=== PATIENT | male | born 1955 | race Caucasian/White ===

== ENCOUNTER 2020-02-09 13:22 | Inpatient (IN) ==
[2020-02-09] MEDS ORDERED: DEXAMETHASONE SOD INJ 10 MG/ML VIAL IV ONE (13:46)
--- NOTE | 2020-02-09 14:14 | Emergency Department Note ---
Impression & Plan Pneumonia due to 2019 novel coronavirus, Hypoxia, Respiratory failure ED Provider Note NAME: KATHRINE KABA AGE: 64 SEX: M : 1955 ARRIVES VIA: Walk-In INFORMANT: Patient ED PROVIDER(S): Laureano Oates DO CHIEF COMPLAINT: Shortness of breath HPI: The patient is a 64-year-old male who presented to the emergency department because of severe shortness of breath. The patient was seen in our facility earlier this week on Tuesday and was diagnosed with COVID-19. He was sent home because at that time he was stable and did not have an oxygen requirement. He followed up with his [facility] doctor. He was started on prednisone Tessalon Perles and doxycycline. He was also taking inhaler. The patient states he continues to to have worsening symptoms including shortness of breath and dry cough. The patient presents back to the emergency department because of severe difficulty breathing. He denies having any nausea or vomiting. The patient has not had any leg swelling. He denies having any orthopnea but does have very severe shortness of breath with any exertion. The patient presented to triage and was found have a very low oxygen saturation. He was moved directly to room A4. ROS: See above HPI for pertinent positives & negatives. A total of 10 systems reviewed and were otherwise negative. PAST MEDICAL HISTORY: See Below PAST SURGICAL HISTORY: See Below FAMILY HISTORY: See Below SOCIAL HISTORY: See Below HOME MEDICATIONS: See Below ALLERGIES: See Below VITALS: See Below PHYSICAL EXAMINATION: GENERAL: Q patient is awake and alert. The patient is very anxious appearing. EYES: The conjunctivae are clear. The pupils are round and reactive. EARS, NOSE, MOUTH AND THROAT: The nose is without any evidence of any deformity. NECK: The neck is nontender and supple. RESPIRATORY: Shallow respirations were noted. There were rales noted in both upper lung mccabe. Significant tachypnea and conversational dyspnea was appreciated. CARDIOVASCULAR: Tachycardic rate with regular rhythm was noted. No definite murmur could be heard. GASTROINTESTINAL: The abdomen is soft. Abdomen is nontender. MUSCULOSKELETAL/EXTREMITIES: There is no evidence of gross deformity full range of motion is noted in the hips and shoulders. SKIN: There is no obvious evidence of any rash. There are no petechiae, pallor or cyanosis noted. NEUROLOGIC: Patient is awake alert and oriented x3. MEDICAL DECISION MAKING: The patient is a 64-year-old male who presented to the emergency department with failed outpatient treatment for COVID-19 pneumonia. The patient was seen twice for this acute pulmonary infection. He returns emergency department today with significant hypoxia. He was placed on supplemental oxygen. At rest he does seem to be much improved and his oxygen saturation is improved as well. The patient was treated with Decadron in the emergency department. I discussed the patient's laboratory and radiographic studies with him. He was not aggressively hydrated given the nature of his pulmonary infection. I discussed the patient's condition with the on-call [facility] hospitalist. They have agreed to evaluate the patient in the emergency department for further management and disposition. Triage Nursing notes reviewed. Prior medical records reviewed Vital Signs: reviewed and remarkable for hypoxia and tachypnea. Differential diagnosis: Reactive airway disease, pneumonia, pneumothorax, COPD, CHF, infections, cardiac ischemia, pulmonary embolism, musculoskeletal, gastrointestinal, as well as other pathologies. ER treatment provided: See below Diagnostics interpreted by me: ECG: EKG was obtained in the emergency department. My interpretation is sinus tachycardia at 103 bpm. PVCs were noted. Left bundle branch block pattern was noted. This was compared to a tracing from February [id number]. No significant changes were noted. Cardiac Monitoring: An order was placed for continuous cardiac monitoring. The monitor shows a rate of 95 bpm with sinus rhythm. Laboratory studies: As stated above and show below. Imaging studies: See below Consultation(s): [id number]: I discussed this with Dr. Haynes who is on-call for the [facility] group. He will evaluate the patient in the emergency department. ED COURSE: Procedures: none PDMP:reviewed and no issues Critical Care: I have personally spent greater than 55 minutes of critical care time in the direct management of this patient. This includes bedside care, interpretation of diagnostic studies, and testing, discussion with consultants, patient, and family members, and other required patient management activities. This 55 minutes is in excess of all separately billable procedures. Past Med/Surg History Medical History COVID-19 Hypercholesterolemia Hypertension Social History Smoking Status: Never smoker Preferred Language: Maori Feels Safe at Home: Yes Allergies Allergies Allergy/AdvReac Type Severity Reaction Status Date / Time No Known Allergies Allergy Mild Unverified 02/04/20 12:30 Home Meds Home Medications Medication Instructions Recorded Confirmed aspirin 81 mg PO QAM 02/04/20 02/04/20 atorvastatin 10 mg PO 2XWK 02/04/20 02/04/20 metoprolol tartrate 12.5 mg PO BID 02/04/20 02/04/20 warfarin 2.5 mg PO 5XWK 02/04/20 02/04/20 warfarin 5 mg PO 2XWK 02/04/20 02/04/20 Previous Rx's Medication Instructions Recorded benzonatate [Tessalon Perles] 100 mg PO Q6H PRN #20 cap 02/04/20 Results & Data (ED) Vital Signs Vital Signs - 24 hr 02/09/20 13:31 02/09/20 13:56 02/09/20 14:00 Pulse Rate 105 H 103 H 105 H Pulse Rate from SpO2 Sensor 92 H 90 Respiratory Rate 30 H 17 6 L Respiratory Effort / Characteristics Short of Breath SOB on Exertion Respiratory Pattern Tachypnea Blood Pressure 144/77 H 126/104 H 135/97 Blood Pressure Mean 99 110 110 Blood Pressure Position Sitting Pulse Oximetry 79 L 86 L 87 L Oxygen Delivery Method Room Air Nasal Cannula Oxymask Oxygen Flow Rate 6 6 Sepsis Recent Fever Within 48 Hours No Sepsis New/Unexplained Change in Mental Status No Sepsis Action Taken by Nursing No Action Required Oxygen Flow Rate - Titration Pulse Oximetry Post Tiitration 02/09/20 14:16 02/09/20 14:18 02/09/20 14:20 Pulse Rate 90 Pulse Rate from SpO2 Sensor 92 H Respiratory Rate 21 Respiratory Effort / Characteristics Accessory Muscle Use Short of Breath SOB on Exertion Respiratory Pattern Blood Pressure 144/84 H Blood Pressure Mean 102 Blood Pressure Position Pulse Oximetry 91 91 91 Oxygen Delivery Method Oxymask Oxymask Oxymask Oxygen Flow Rate 12 12 12 Sepsis Recent Fever Within 48 Hours Sepsis New/Unexplained Change in Mental Status Sepsis Action Taken by Nursing Oxygen Flow Rate - Titration 12 Pulse Oximetry Post Tiitration 91 02/09/20 14:30 02/09/20 14:39 02/09/20 14:45 Pulse Rate 105 H 99 H Pulse Rate from SpO2 Sensor 80 79 Respiratory Rate 22 6 L Respiratory Effort / Characteristics Spontaneous Labored Respiratory Pattern Rapid/Shallow Tachypnea Blood Pressure 144/72 H 128/87 Blood Pressure Mean 77 100 Blood Pressure Position Pulse Oximetry 92 90 Oxygen Delivery Method Oxygen Flow Rate 15 15 Sepsis Recent Fever Within 48 Hours Sepsis New/Unexplained Change in Mental Status Sepsis Action Taken by Nursing Oxygen Flow Rate - Titration Pulse Oximetry Post Tiitration 02/09/20 15:00 02/09/20 15:16 02/09/20 15:30 Pulse Rate 94 H 98 H 94 H Pulse Rate from SpO2 Sensor 88 90 88 Respiratory Rate 12 19 36 H Respiratory Effort / Characteristics Spontaneous Short of Breath Spontaneous Short of Breath Respiratory Pattern Blood Pressure 144/94 H 144/95 H 146/93 H Blood Pressure Mean 103 117 99 Blood Pressure Position Pulse Oximetry 91 91 92 Oxygen Delivery Method Oxymask Oxymask Oxymask Oxygen Flow Rate 15 15 15 Sepsis Recent Fever Within 48 Hours Sepsis New/Unexplained Change in Mental Status Sepsis Action Taken by Nursing Oxygen Flow Rate - Titration Pulse Oximetry Post Tiitration 02/09/20 15:45 02/09/20 16:00 Pulse Rate 94 H 90 Pulse Rate from SpO2 Sensor 76 69 Respiratory Rate 52 H 31 H Respiratory Effort / Characteristics Spontaneous Short of Breath Respiratory Pattern Blood Pressure 133/85 136/103 H Blood Pressure Mean 90 110 Blood Pressure Position Pulse Oximetry 91 90 Oxygen Delivery Method Oxymask Oxymask Oxygen Flow Rate 15 15 Sepsis Recent Fever Within 48 Hours Sepsis New/Unexplained Change in Mental Status Sepsis Action Taken by Nursing Oxygen Flow Rate - Titration Pulse Oximetry Post Tiitration Home Medications Current Medication List: was personally reviewed by me Laboratory Data Attestation: I reviewed the patient's lab results. Result diagrams: 02/09/20 14:16 02/09/20 14:16 Lab Results 02/09/20 02/09/20 02/09/20 Range/Units 14:16 14:16 14:16 WBC 12.45 H (4.8-10.8) K/uL RBC 5.04 (4.7-6.1) M/uL Hgb 15.7 (14.0-18.0) g/dL Hct 45.2 (42-52) % MCV 89.7 (80-100) fL MCH 31.2 (25-34) pg MCHC 34.7 (32-36) g/dL RDW Std Deviation 42.3 (36.4-46.3) fL RDW Coeff of Adam 12.9 (11.5-14.5) % Plt Count 315 (130-400) K/uL MPV 11.5 H (7.4-10.4) fL Immature Gran % (Auto) 0.6 % Neut % (Auto) 92.0 % Lymph % (Auto) 2.4 % Dale % (Auto) 4.8 % Eos % (Auto) 0.0 % Baso % (Auto) 0.2 % Neut # (Auto) 11.46 H (1.4-6.5) K/uL Lymph # (Auto) 0.30 L (1.2-3.4) K/uL Dale # (Auto) 0.60 H (0.11-0.59) K/uL Eos # (Auto) 0.00 (0-0.5) K/uL Baso # (Auto) 0.02 (0-0.2) K/uL Immature Gran # (Auto) 0.07 H (0.00-0.02) K/uL PT 55.6 H (9.0-12.0) Seconds INR 5.8 H* (0.9-1.1) APTT 54.8 H* (21.0-31.0) Seconds PTT Ratio 2.0 VBG pH (7.36-7.41) VBG pCO2 (38-50) mmHg VBG pO2 mmHg VBG HCO3 mmol/L VBG O2 Saturation % VBG Base Excess mEq/L Barometric Pressure mm/Hg Sodium 139 (136-145) mmol/L Potassium 3.4 L (3.5-5.1) mmol/L Chloride 108 H (98-107) mmol/L Carbon Dioxide 22 (21-32) mmol/L Anion Gap 9.0 (3-11) BUN 40 H (7-18) mg/dl Creatinine 1.01 (0.6-1.4) mg/dl Est Cr Clr Drug Dosing 76.8 ml/min Est GFR ( Amer) 90.7 Est GFR (Non-Af Amer) 78.2 BUN/Creatinine Ratio 39.2 H (10-20) Glucose 156 H (70-99) mg/dl Lactate (0.4-2.0) mmol/L Calcium 8.9 (8.5-10.1) mg/dl Magnesium 2.3 (1.8-2.4) mg/dl Total Bilirubin 1.1 H (0.2-1) mg/dl AST 65 H (15-37) U/L ALT 66 (12-78) U/L Alkaline Phosphatase 73 (45-117) U/L Troponin I < 0.015 (0-0.045) ng/ml Total Protein 7.3 (6.4-8.2) gm/dl Albumin 3.1 L (3.4-5.0) gm/dl Globulin 4.2 H (2.5-4.0) gm/dl Albumin/Globulin Ratio 0.7 L (0.9-2) Procalcitonin (0-0.5) ng/ml 02/09/20 02/09/20 02/09/20 Range/Units 14:16 15:01 15:01 WBC (4.8-10.8) K/uL RBC (4.7-6.1) M/uL Hgb (14.0-18.0) g/dL Hct (42-52) % MCV (80-100) fL MCH (25-34) pg MCHC (32-36) g/dL RDW Std Deviation (36.4-46.3) fL RDW Coeff of Adam (11.5-14.5) % Plt Count (130-400) K/uL MPV (7.4-10.4) fL Immature Gran % (Auto) % Neut % (Auto) % Lymph % (Auto) % Dale % (Auto) % Eos % (Auto) % Baso % (Auto) % Neut # (Auto) (1.4-6.5) K/uL Lymph # (Auto) (1.2-3.4) K/uL Dale # (Auto) (0.11-0.59) K/uL Eos # (Auto) (0-0.5) K/uL Baso # (Auto) (0-0.2) K/uL Immature Gran # (Auto) (0.00-0.02) K/uL PT (9.0-12.0) Seconds INR (0.9-1.1) APTT (21.0-31.0) Seconds PTT Ratio VBG pH 7.46 H (7.36-7.41) VBG pCO2 34 L (38-50) mmHg VBG pO2 34 mmHg VBG HCO3 24 mmol/L VBG O2 Saturation 65.0 % VBG Base Excess 0.5 mEq/L Barometric Pressure 732.6 mm/Hg Sodium (136-145) mmol/L Potassium (3.5-5.1) mmol/L Chloride (98-107) mmol/L Carbon Dioxide (21-32) mmol/L Anion Gap (3-11) BUN (7-18) mg/dl Creatinine (0.6-1.4) mg/dl Est Cr Clr Drug Dosing ml/min Est GFR ( Amer) Est GFR (Non-Af Amer) BUN/Creatinine Ratio (10-20) Glucose (70-99) mg/dl Lactate 2.8 H* (0.4-2.0) mmol/L Calcium (8.5-10.1) mg/dl Magnesium (1.8-2.4) mg/dl Total Bilirubin (0.2-1) mg/dl AST (15-37) U/L ALT (12-78) U/L Alkaline Phosphatase (45-117) U/L Troponin I (0-0.045) ng/ml Total Protein (6.4-8.2) gm/dl Albumin (3.4-5.0) gm/dl Globulin (2.5-4.0) gm/dl Albumin/Globulin Ratio (0.9-2) Procalcitonin 0.06 (0-0.5) ng/ml Administered Medications Discontinued Medications Dexamethasone (Dexamethasone Sod Inj 10 Mg/Ml Vial) 10 mg IV NOW ONE Stop: 02/09/20 13:47 Last Admin: 02/09/20 14:21 Dose: 10 mg Documented by: [id number] Imaging Data Radiologist's Impression: Patient: KATHRINE KABA Admit Date: 02/09/20 MR#: [id number] Address1: [facility] [address] Acct ID:[id number] Address2: [address] [place] [address] Date: 1955 [facility] Zip: [place] [address] Age: 64 Location: ED Sex: M Room/Bed: Att Phy: Diagnosis: TROUBLE BREATHING Rajwinder Phy: PCP,NO Service Date: 02/09/20 Fam Phy: Interpreting Phy: Gamaliel Delgado MD Admit Phy: Ordering Phy: Laureano Oates DO cc: ~ XR chest 1V portable CLINICAL HISTORY: SEPSIS COMPARISON STUDY: Chest radiograph February 04, 2020. FINDINGS: There are median sternotomy wires. Cardiomediastinal silhouette is stable. A large hiatal hernia is again noted. There is no pneumothorax. There is a possible small left pleural effusion. Bilateral airspace opacities have pr ogressed since exam February 04, 2020. IMPRESSION: 1. Progression of bilateral airspace opacities consistent with an infectious process. 2. Large hiatal hernia. 3. Suspected small left pleural effusion. ACT 112: Negative or not required by law. Electronically signed by: Gamaliel Delgado M.D. 02/09/2020 2:29 PM Dictated: 02/09/20 142 Transcribed: 02/09/201427 Blood Pressure Blood Pressure Findings: Elevated blood pressure Blood Pressure Disposition: further management by hospitalist Discharge Plan Visit Data Chief Complaint: Shortness of Breath/Dyspnea Stated Complaint: TROUBLE BREATHING ED Provider: Laureano Oates Discharge Problem: Pneumonia due to 2019 novel coronavirus, Hypoxia, Respiratory failure Patient Disposition: Being Evaluated by Hospitalist Condition: Good Forms Stand Alone Forms: My [facility] [address] [employer] Prescriptions Prescriptions: No Action warfarin 2.5 mg Tablet 5 mg PO 2XWK RF: 0 warfarin 2.5 mg Tablet 2.5 mg PO 5XWK RF: 0 atorvastatin 10 mg Tablet 10 mg PO 2XWK RF: 0 aspirin 81 mg Tablet,Delayed Release (Dr/Ec) 81 mg PO QAM RF: 0 metoprolol tartrate 25 mg Tablet 12.5 mg PO BID RF: 0 benzonatate [Tessalon Perles] 100 mg capsule 100 mg PO Q6H PRN (Reason: cough) Qty: 20 RF: 0 Referrals Referrals: Andi Espitia DO [Primary Care Provider] - Discharge Problem: Respiratory failure Qualifiers: Chronicity: acute Respiratory failure complication: hypoxia Qualified Code(s): J96.01 - Acute respiratory failure with hypoxia
--- NOTE | 2020-02-09 14:30 | XRay Report ---
XR chest 1V portable CLINICAL HISTORY: SEPSIS COMPARISON STUDY: Chest radiograph February 04, 2020. FINDINGS: There are median sternotomy wires. Cardiomediastinal silhouette is stable. A large hiatal h ernia is again noted. There is no pneumothorax. There is a possible small left pleural effusion. Bila teral airspace opacities have progressed since exam February 04, 2020. IMPRESSION: 1. Progression of bilateral airspace opacities consistent with an infectious process. 2. Large hiatal hernia. 3. Suspected small left pleural effusion. ACT 112: Negative or not required by law. Electronically signed by: Gamaliel Delgado M.D. 02/09/2020 2:29 PM
[2020-02-09 14:48] LABS: Basophils # (auto) 0.02 K/uL (0-0.2); Basophils % (auto) 0.2 %; Hematocrit (blood only) 45.2 % (42-52); Hemoglobin 15.7 g/dL (14.0-18.0); Immature Granulocytes # (auto) 0.07 K/uL (0.00-0.02); Immature Granulocytes % (auto) 0.6 %; Lymphocytes % (auto) 2.4 %; Mean Corpuscular Hemoglobin 31.2 pg (25-34); Mean Corpuscular Hgb Conc 34.7 g/dL (32-36); Mean Corpuscular Volume 89.7 fL (80-100); Mean Platelet Volume 11.5 fL (7.4-10.4); Monocytes % (auto) 4.8 %; Neutrophils # (auto) 11.46 K/uL (1.4-6.5); Platelet Count 315 K/uL (130-400); RDW Coefficient of Variation 12.9 % (11.5-14.5); RDW Standard Deviation 42.3 fL (36.4-46.3); Red Blood Count 5.04 M/uL (4.7-6.1); White Blood Count 12.45 K/uL (4.8-10.8)
[2020-02-09 15:09] LABS: Alanine Aminotransferase 66 U/L (12-78); Albumin Level 3.1 gm/dl (3.4-5.0); Aspartate Aminotransferase 65 U/L (15-37); BUN Creatinine Ratio 39.2 (10-20); Blood Urea Nitrogen 40 mg/dl (7-18); Calcium 8.9 mg/dl (8.5-10.1); Carbon Dioxide 22 mmol/L (21-32); Chloride 108 mmol/L (98-107); Creatinine Clr Calc Pharmacy 76.8 ml/min; Est GFR (African American) 90.7; Est GFR (Non-African American) 78.2; Glucose 156 mg/dl (70-99); Magnesium 2.3 mg/dl (1.8-2.4); Potassium 3.4 mmol/L (3.5-5.1); Prothrombin Time 55.6 Seconds (9.0-12.0); Sodium 139 mmol/L (136-145)
[2020-02-09 15:14] LABS: Albumin Globulin Ratio 0.7 (0.9-2); Alkaline Phosphatase 73 U/L (45-117); Bilirubin,Total 1.1 mg/dl (0.2-1); Globulin 4.2 gm/dl (2.5-4.0); Total Protein 7.3 gm/dl (6.4-8.2); Troponin I < 0.015 ng/ml (0-0.045)
[2020-02-09 15:17] LABS: Base Excess VBG 0.5 mEq/L; pH VBG 7.46 (7.36-7.41)
[2020-02-09 15:37] LABS: INR 5.8 (0.9-1.1); Partial Thromboplastin Time 54.8 Seconds (21.0-31.0)
[2020-02-09 16:50] LABS: C Reactive Protein 7.24 mg/dl (0-0.29); Ferritin 1827.4 ng/ml (8-388)
--- NOTE | 2020-02-09 16:58 | Pulmonary Consultation ---
Date of Consultation February 09, 2020 Assessment & Plan (1) Acute respiratory failure with hypoxia: Chest x-ray 02/09/2020 personally reviewed: Portable film, good respiratory effort, bilateral peripheral opacities are appreciated in upper and lower zones. -- Acute hypoxic respiratory failure Secondary to COVID-19 pneumonia Continue with O2 supplementation to keep O2 saturation greater than 88% Procalcitonin 0.06 --> 0.09 Awake proning will be helpful Continue with remdesivir and dexamethasone Monitor creatinine and LFTs Continue with incentive spirometry, guaifenesin and flutter valve. If there is any clinical deterioration in his respiratory status will plan to intubate. --Gram-positive cocci in clusters in one of the blood culture bottles drawn on 02/04/2020 MRSA screen on that blood culture was negative Patient is currently on Zosyn we will continue with the same Repeat blood culture negative today Continue with antibiotics for the time being Please note the above document was generated using voice recognition software. It may contain grammatical, syntax or spelling errors.Any formal questions or concerns about the content, text or information contained within the body of this dictation should be directly addressed to the provider for clarification. (2) COVID-19: (3) Pneumonia due to 2019 novel coronavirus: History of Present Illness History of Present Illness 64-year-old male with past medical history of bicuspid aortic valve s/p AVR on Coumadin, hypertension, coronary artery disease, Staples's esophagus, was diagnosed with COVID-19 on 02/04/2020 He was admitted to the hospital because of worsening shortness of breath. In the ER his saturation was in the 70s. He was requiring [address] Haynes gave me a call and discussed the case with me. I advised him to put the patient on high flow to keep SPO2 greater than 88%. If the patient is still in distress on high flow changed to BiPAP. Order BNP. Patient is talking in full sentences without any significant respiratory distress. Denies any chest pain. Has been afebrile. No dysuria, no diarrhea. Allergies Allergy/AdvReac Type Severity Reaction Status Date / Time No Known Allergies Allergy Verified 02/09/20 17:32 Home Medications Medication Instructions Recorded Confirmed Type aspirin 81 mg PO QAM 02/04/20 02/09/20 History atorvastatin 10 mg PO 2XWK 02/04/20 02/09/20 History metoprolol tartrate 12.5 mg PO BID 02/04/20 02/09/20 History warfarin 2.5 mg PO 5XWK 02/04/20 02/09/20 History warfarin 5 mg PO 2XWK 02/04/20 02/09/20 History benzonatate [Tessalon Perles] 100 mg PO TID PRN 02/09/20 02/09/20 History doxycycline hyclate 100 mg PO BID 02/09/20 02/09/20 History prednisone 20 mg PO BID 02/09/20 02/09/20 History Patient History Medical History (Updated 02/10/20 @ 09:16 by Niyah Dumont MD) COVID-19 Hypercholesterolemia Hypertension Social History Smoking Status: Never smoker Second Hand Exposure: No; Do You Dip or Chew Tobacco: No; Tobacco Cessation Education Requested by Patient: No Hx Alcohol Use: No Hx Substance Use: No Preferred Language: Montenegrin Communication Ability: Effective Cord Maker Required: No Beliefs That Will Affect Care: None Current Living Situation: Alone Feels Safe at Home: No Safety Concerns: Feels Safe At This Time Assistive Devices: BiPap and Oxygen - Continuous Review of Systems Review of Systems: All systems reviewed & are unremarkable except as noted in HPI & below Physical Exam Physical Exam: Constitutional: No acute distress HEENT: EOMI, PERRLA Respiratory system: Decreased air entry bilaterally, no wheeze, no rhonchi, positive crackles bilateral lower lobes CVS: S1-S2 positive, no murmurs or gallops Abdomen: Soft, nontender, nondistended, positive bowel sounds x4, obese Extremities: +2 pulses bilaterally radialis/ dorsalis pedis, no cyanosis, no edema Neuro: Awake alert oriented x3 Psych: Normal mood and affect G/U: No [place] Skin: no rashes, warm and dry Lymphatic: no cervical or axillary lymphadenopathy Results & Data Results & Data ([facility]) Vital Signs (Past 12 Hours) Vital Signs Pulse Resp BP Pulse Ox 02/09/20 16:30 98 H 27 H 137/98 91 02/09/20 16:15 90 28 H 136/95 89 L 02/09/20 16:00 90 31 H 136/103 H 90 02/09/20 15:45 94 H 52 H 133/85 91 02/09/20 15:30 94 H 36 H 146/93 H 92 02/09/20 15:16 98 H 19 144/95 H 91 02/09/20 15:00 94 H 12 144/94 H 91 02/09/20 14:45 99 H 6 L 128/87 90 02/09/20 14:30 105 H 22 144/72 H 92 02/09/20 14:20 90 21 144/84 H 91 02/09/20 14:18 91 02/09/20 14:16 91 02/09/20 14:00 105 H 6 L 135/97 87 L 02/09/20 13:56 103 H 17 126/104 H 86 L 02/09/20 13:31 105 H 30 H 144/77 H 79 L 02/09/20 14:16 02/09/20 14:16 PG Care Time/CCT Total # of Minutes Spent Total Time Spent with Patient: Total time spent is greater than 50% in coordination of care (as documented) at patient's floor/unit and/or counseling patient: Coding Level of Care Code 29845 Initial Inpt Care Lvl 3 Diagnoses Acute respiratory failure with hypoxia J96.01 COVID-19 U07.1 Pneumonia due to 2019 novel coronavirus U07.1; J12.89
--- NOTE | 2020-02-09 17:12 | History & Physical Report ---
Date of Service February 09, 2020 Assessment & Plan (1) Acute respiratory failure with hypoxia: Diagnosed with COVID-19 on Tuesday last with about 3 or 4 days prior history of cough and shortness of breath Came in today with increasing shortness of breath Noted to have acute hypoxic respiratory failure with saturation less than 70% on room air at presentation Saturating more than 90% with 15 L of OxiMax Discussed with the audio visual aids director We will continue with high flow oxygen to maintain saturation BiPAP with a setting of 12/8 at 60% at night (2) Pneumonia due to COVID-19 virus: Initial diagnosis of COVID-19 is on Tuesday last-asymptomatic during that time Condition got worse and now requiring increasing oxygen to maintain saturation Received dexamethasone and will continue We will start remdesivir (3) Status post transcatheter aortic valve replacement (TAVR) using bioprosthesis: No acute chest pain and/or palpitation Will get BMP to make sure there is no pulmonary edema Troponin has been negative (4) History of bicuspid aortic valve: (5) Hypertension: We will continue with current medication (6) Hypercholesterolemia: Hold statin (7) Barretts esophagus: Continue with PPI (8) Aortic aneurysm: No acute symptoms DVT prophylaxis Has been on Coumadin for AVR INR is supratherapeutic We will hold Coumadin for tonight and monitor INR CODE STATUS Full History of Present Illness Chief Complaint: Increasing shortness of breath with cough for the last 4 days Primary Care Provider: Andi Espitia DO He is a 64-year-old male with significant past medical history of bicuspid aortic valve status post AVR on Coumadin, hypertension, diaphragmatic hernia, coronary artery disease, ascending aortic aneurysm and Staples's esophagus was diagnosed with COVID-19 on Tuesday last in the emergency room. He came in with cough and shortness of breath for about 3 days prior to Tuesday. He did not require any oxygen at presentation on Tuesday and he was sent home. He has had abdominal discomfort with diarrhea but that that resolved subsequently. Later on he was seen by PCP and was given doxycycline for possible pneumonia. For the last 3 or 4 days he has been complaining of more cough and shortness of breath with minimal exertion and even at rest but did not have any more diarrhea or abdominal discomfort and no problem with smell. Did not complain any chest pain and/or palpitation, no fever and/or chills, no abdominal pain nausea and or vomiting. He was noted to be very short of breath at presentation with saturation around lower 70s on room air. His chest x-ray did show increasing infiltration and he is requiring 15 L of oxygen to maintain saturation above 90. His ferritin is 1827 and CRP 7.24. His lactate was slightly elevated at 2.8 and his troponin less than 0.015. We will get BNP to see if he needs any Lasix. He will be admitted to Covid unit in telemetry section. Allergies Allergy/AdvReac Type Severity Reaction Status Date / Time No Known Allergies Allergy Mild Unverified 02/04/20 12:30 Home Medications Medication Instructions Recorded Confirmed Type aspirin 81 mg PO QAM 02/04/20 02/04/20 History atorvastatin 10 mg PO 2XWK 02/04/20 02/04/20 History benzonatate [Tessalon Perles] 100 mg PO Q6H PRN #20 cap 02/04/20 Rx metoprolol tartrate 12.5 mg PO BID 02/04/20 02/04/20 History warfarin 2.5 mg PO 5XWK 02/04/20 02/04/20 History warfarin 5 mg PO 2XWK 02/04/20 02/04/20 History Past Med/Surg History Medical History COVID-19 Hypercholesterolemia Hypertension Social History Smoking Status: Never smoker Preferred Language: Upper Sorbian Feels Safe at Home: Yes Review of Systems Review of Systems: All systems reviewed & are unremarkable except as noted in HPI & below Physical Exam Physical Exam: Lying in bed with moderate shortness of breath Constitutional: well developed, well nourished, + acute distress, + ill appearing and + in distress Eyes: PERRL, conjunctivae normal, anicteric sclerae ENMT: external ear and nose normal, oropharynx normal Neck: trachea midline, no thyromegaly Respiratory: + respiratory distress Auscultation: + diminished lung sounds and + crackles (Fine crackles at the bases); no wheezes Cardiovascular: Rate/Rhythm: regular rate and regular rhythm Heart Sounds: + click Extremities: no edema Gastrointestinal (Abdomen): Inspection/Auscultation: normal bowel sounds; abdomen not distended Percussion/Palpation: abdomen soft; abdomen nontender Musculoskeletal: No acute arthritis in any joint Neurologic: Alert, awake and oriented x3. No focal sensory and motor deficit appreciated Psychiatric: A+Ox3, euthymic affect Lymphatic: no cervical or axillary lymphadenopathy Results & Data Results & Data ([facility]) Vital Signs (Past 12 Hours) Vital Signs Pulse Resp BP Pulse Ox 02/09/20 16:30 98 H 27 H 137/98 91 02/09/20 16:15 90 28 H 136/95 89 L 02/09/20 16:00 90 31 H 136/103 H 90 02/09/20 15:45 94 H 52 H 133/85 91 02/09/20 15:30 94 H 36 H 146/93 H 92 02/09/20 15:16 98 H 19 144/95 H 91 02/09/20 15:00 94 H 12 144/94 H 91 02/09/20 14:45 99 H 6 L 128/87 90 02/09/20 14:30 105 H 22 144/72 H 92 02/09/20 14:20 90 21 144/84 H 91 02/09/20 14:18 91 02/09/20 14:16 91 02/09/20 14:00 105 H 6 L 135/97 87 L 02/09/20 13:56 103 H 17 126/104 H 86 L 02/09/20 13:31 105 H 30 H 144/77 H 79 L Laboratory Results Short CBC 02/09/20 Range/Units 14:16 WBC 12.45 H (4.8-10.8) K/uL Hgb 15.7 (14.0-18.0) g/dL Hct 45.2 (42-52) % Plt Count 315 (130-400) K/uL [facility] 02/09/20 14:16 Sodium 139 Potassium 3.4 L Chloride 108 H Carbon Dioxide 22 BUN 40 H Creatinine 1.01 Glucose 156 H Calcium 8.9 Cardiac Enzymes 02/09/20 Range/Units 14:16 Troponin I < 0.015 (0-0.045) ng/ml Liver Function 02/09/20 Range/Units 14:16 Total Bilirubin 1.1 H (0.2-1) mg/dl AST 65 H (15-37) U/L ALT 66 (12-78) U/L Alkaline Phosphatase 73 (45-117) U/L Albumin 3.1 L (3.4-5.0) gm/dl Medications Administered Current Inpatient Medications Remdesivir 200 mg/ Sodium (Chloride) 250 mls @ 125 mls/hr IV ONE ONE; Protocol Stop: 02/09/20 19:29 Remdesivir 100 mg/ Sodium (Chloride) 250 mls @ 250 mls/hr IV Q24H THU; Protocol Stop: 02/13/20 17:59 Sodium Chloride (Sodium Chloride 0.9% 10ml Flush) 30 ml IV Q24H THU Stop: 02/13/20 17:01
[2020-02-09] MEDS ORDERED: REMDESIVIR 200 MG in SODIUM CHLORIDE 0.9% 210 ML IV ONE (17:30)
[2020-02-09] MEDS ORDERED: POTASSIUM CHLORIDE CRTAB 20 MEQ TABCR PO STA (19:16)
[2020-02-09 20:15] LABS: Appearance Urine Clear (Clear); Bacteria Urine Automated Negative (Negative); Bilirubin Urine Negative (Negative); Blood Urine Trace (Negative); Color Urine Dark Yellow; Epithelial Cell Urine Auto >30 /lpf (0-5); Glucose Urine UA Negative (Negative); Ketones Urine Negative (Negative); Leukocyte Esterase Urine Negative (Negative); Nitrite Urine Negative (Negative); Protein Urine 1+ (Negative); RBC Urine Automated 0-4 /hpf (0-4); Specific Gravity Urine 1.033 (1.000-1.030); Urobilinogen Urine Negative (Negative)
[2020-02-09] MEDS ORDERED: SODIUM CHLORIDE 0.9% 10ML FLUSH IV ONE (20:45)
[2020-02-09] MEDS ORDERED: BENZONATATE 100 MG CAPSULE PO PRN (21:11)
[2020-02-09] MEDS: DOXYCYCLINE HYCLATE 100 MG CAP PO SCH (22:42)
[2020-02-09] MEDS: METOPROLOL TARTRATE 25 MG TAB PO SCH (22:43)
[2020-02-10] MEDS: DOXYCYCLINE HYCLATE 100 MG CAP PO SCH (07:37)
[2020-02-10] MEDS: METOPROLOL TARTRATE 25 MG TAB PO SCH (07:37)
[2020-02-10] MEDS ORDERED: hydrALAZINE HCL 20 MG/ML VIAL IV PRN (08:20)
[2020-02-10] MEDS ORDERED: PIPERACILL/TAZOBAC CONSULT ACTIVE PRN (08:24)
[2020-02-10] MEDS ORDERED: STAT IV Infusion **Titration per Protocol STA (08:37)
[2020-02-10] MEDS ORDERED: VANCOMYCIN CONSULT ACTIVE PRN ×2 (08:58→09:04)
--- NOTE | 2020-02-10 08:58 | Hospitalist Progress Note ---
Date of Service February 10, 2020 Assessment & Plan (1) Severe sepsis: meets SIRS criteria : tachycardic , tachypneic , leukocytosis elevated Lactic acid level source of infection : COVID 19 pneumonia lactic acidosis due to Hypoxemia , Pro calcitonin negative , bacterial infection unlike \on empiric abx with IV zosyn and Doxy as pt is critically ill pulmonology /critical care consulted -appreciate input (2) Acute respiratory failure with hypoxia: COVID-19 + Saturday 02/03 with history 1 weeks of cough and shortness of breath/had diarrhea /poor appetite , body ache , generalized weakness was discharged from ER admitted on 02/09/20 for acute hypoxic respiratory failure with saturation less than 70% on room air at presentation with increased work for breathing pt admitted to COVID unit was on Bipap started on IV remdesivir/Dexamethasone Convalescent plasma not ordered as symptoms > 20 days 02/09: developed worsening of resp distress while on Bipap with tachycardia/tachypnea /hypertensive urgency appreciate input and help from Pulmonary /critical care pt reports of underlying severe anxiety causing more work of breathing IV precedex gtt as per Critical care pt will be placed on High flow 02 cont supportive therapy , pt is aware if resp status gets worse with non invasive support /Bipap -next step will be mechanical ventilation -pt is agreeable . transferred to room 201 in ICU status for high level of care added IV Zosyn, was on Doxycycline , cont strict NPO till resp status improves blood culture on 02/04/20 : one bottle gram positive cocci in clusters , no sensitivity available PRC For MRSA negative-no tx needed ( possible contamination ) repeat blood cultures ordered on this admission 02/08 : report pending (3) Pneumonia due to COVID-19 virus: management as outlined above (4) Status post transcatheter aortic valve replacement (TAVR) using bioprosthesis: No acute chest pain and/or palpitation BNP normal , no evidence of CHF cont monitor one set of gram positive blood culture 1 week back possible due to contamination will follow repeat blood culture report stable cardiac status (5) History of bicuspid aortic valve: (6) Hypertension: hypertensive episode due to respiratory distress /anxiety attack cont on beta debbie , metoprolol changed to IV for NPO status PRN IV hydralazine (7) Hypercholesterolemia: Hold statin-npo (8) Barretts esophagus: changed PPI to IV (9) Aortic aneurysm: No acute symptoms DVT prophylaxis on Coumadin INR elevated CODE STATUS Full Disposition : to be determined remains critically ill Pt/OT eval when medically stable pt is AAO x3 , declined offer to call family members and update his current status Admission and Anticipated Discharge Date Admission Date: February 09, 2020 Subjective FOLLOW UP VISIT FOR ACUTE HYPOXEMIC RESPIRATORY FAILURE /COVID 19 PNEUMONIA : Pt seen in COVID unit in room 220/1 sitting up on chair , anxious and tachypneic on Bipap was notified by nursing that pt was experiencing respiratory distress , with tachycardia , tachypnea , hypertensive episode desaturation noted to 70% as pt removed Bipap mask for sips of water Pulmonology Dr Hill present at bedside Bipap setting updated , pt's is asked to take deep /slow breath Spo2 improved to 100% /pt appeared to be comfortable , speaking in complete sentences pt will be moved to ICU 201 , for close observation , pt is aware and agreeable for mechanical ventilation if needed . Review of Systems Review of Systems: All systems reviewed & are unremarkable except as noted in HPI & below Constitutional: no fever Respiratory: as per Subjective / HPI, + cough and + dyspnea on exertion; no dyspnea Cardiovascular: + dyspnea, + dyspnea on exertion and + orthopnea Physical Exam Constitutional: WD/WN, vitals as above on Bipap , sitting on chair , anxious Eyes: + anicteric sclerae ENMT: external ear and nose normal, oropharynx normal Neck: trachea midline, no thyromegaly Respiratory: + respiratory distress, + cough, able to speak in complete sentences, + tachypneic and + prolonged expiratory phase Auscultation: + diminished lung sounds Cardiovascular: Rate/Rhythm: regular rate, regular rhythm and + tachycardic Extremities: no edema Gastrointestinal (Abdomen): Percussion/Palpation: abdomen soft; abdomen nontender Musculoskeletal: no cyanosis or clubbing, extremities motor strength 5/5 Skin: no rashes, warm and dry Neurologic: PERRL, EOMI, accommodation nl, no face palsy, no dysarthria Psychiatric: Orientation: alert and oriented x 3 Affect: + anxious affect Results & Data Results & Data ([facility]) Vital Signs (Past 12 Hours) Vital Signs Temp Pulse Pulse Resp BP BP Pulse Ox 02/10/20 07:44 42 H 02/10/20 07:41 36.8 C 75 22 173/104 H 95 02/10/20 07:15 70 41 H 94 02/10/20 04:32 68 44 H 93 02/10/20 03:45 36.6 C 84 24 164/96 H 93 02/10/20 00:00 108 H 45 H 92 02/09/20 23:53 36.4 C L 76 20 151/87 H 92 02/09/20 21:30 87 24 94 02/09/20 20:58 104 H 44 H 142/92 H 85 L Diagnostic Findings Portable chest Xray : COMPARISON STUDY: Chest radiograph February 04, 2020. FINDINGS: There are median sternotomy wires. Cardiomediastinal silhouette is stable. A large hiatal hernia is again noted. There is no pneumothorax. There is a possible small left pleural effusion. Bilateral airspace opacities have progressed since exam February 04, 2020. IMPRESSION: 1. Progression of bilateral airspace opacities consistent with an infectious process. 2. Large hiatal hernia. 3. Suspected small left pleural effusion.
[2020-02-10] MEDS ORDERED: VANCOMYCIN HCL 1,000 MG in SODIUM CHLORIDE 0.9% 250 ML IV SCH (09:00)
[2020-02-10] MEDS ORDERED: ASPIRIN 81 MG ECTAB PO SCH (09:00)
[2020-02-10] MEDS ORDERED: DEXAMETHASONE SOD INJ 10 MG/ML VIAL IV SCH (09:00)
[2020-02-10] MEDS ORDERED: VANCOMYCIN HCL 1,000 MG/270 ML BAG IV STA (09:04)
[2020-02-10] MEDS ORDERED: RAPID SEQUENCE INDUCTION BAG ONE (09:05)
[2020-02-10] MEDS ORDERED: PIPERACILLIN/TAZOBACTAM 3.375 GM in DEXTROSE 5% 100 ML IV ONE (09:15)
[2020-02-10] MEDS ORDERED: PIPERACILLIN/TAZOBACTAM 4.5 GM in DEXTROSE 5% 100 ML IV ONE (09:30)
[2020-02-10] MEDS: dexAMETHasone 10 MG in SYRINGE 0 ML IV SCH (09:54)
[2020-02-10 10:03] LABS: Basophils # (auto) 0.02 K/uL (0-0.2); Basophils % (auto) 0.2 %; Hematocrit (blood only) 48.1 % (42-52); Hemoglobin 16.7 g/dL (14.0-18.0); Immature Granulocytes # (auto) 0.09 K/uL (0.00-0.02); Immature Granulocytes % (auto) 0.8 %; Lymphocytes # (auto) 0.56 K/uL (1.2-3.4); Lymphocytes % (auto) 4.8 %; Mean Corpuscular Hemoglobin 31.9 pg (25-34); Mean Corpuscular Volume 91.8 fL (80-100); Monocytes % (auto) 1.7 %; Neutrophils # (auto) 10.84 K/uL (1.4-6.5); Neutrophils % (auto) 92.5 %; Platelet Count 368 K/uL (130-400); RDW Coefficient of Variation 13.2 % (11.5-14.5); RDW Standard Deviation 43.8 fL (36.4-46.3); Red Blood Count 5.24 M/uL (4.7-6.1); White Blood Count 11.71 K/uL (4.8-10.8)
[2020-02-10 10:06] LABS: Mean Corpuscular Hgb Conc 34.7 g/dL (32-36)
--- NOTE | 2020-02-10 10:16 | Critical Care Progress Note ---
Date of Service February 10, 2020 Assessment & Plan (1) Acute respiratory failure with hypoxia: Chest x-ray 02/09/2020 personally reviewed: Portable film, good respiratory effort, bilateral peripheral opacities are appreciated in upper and lower zones. Retrocardiac opacity likely represents diaphragmatic hernia -- Acute hypoxic respiratory failure Secondary to COVID-19 pneumonia Continue with O2 supplementation to keep O2 saturation greater than 88% COVID-19 + 02/04/2020, NT BNP: 541 CRP 7.24, D-dimer 350 Procalcitonin 0.06 --> 0.09 Continue with remdesivir for total of 5 days and dexamethasone for total of 10 days Monitor creatinine and LFTs Continue with incentive spirometry, guaifenesin and flutter valve. --Mild elevation in AST Is trending down Likely from COVID-19 pneumonia Patient is on remdesivir as well Continue monitoring --Supratherapeutic INR Hold warfarin Monitor H&H --Gram-positive cocci in clusters in one of the blood culture bottles drawn on 02/04/2020 MRSA screen on that blood culture was negative --History of AVR On warfarin --History of hypertension Monitor blood pressure --Prophylaxis VTE: Warfarin GI: IPC's Lines: Peripheral Diet: Cardiac Plan: In/out: +568, urine output is not accurately, it says only 2 ml We will change BiPAP to high flow and see how the patient does on high flow. I think there is a component of anxiety as well. Precedex is also been ordered. To be started only respiratory rate has improved. If there is no clinical improvement in the respiratory rate and/or saturation in the next 15 to 20 minutes I will plan to intubate the patient for ventilatory failure. Patient understands and is agreeable to the above plan. Patient does have gram-positive cocci in clusters on 02/04/2020 MRSA on the culture was negative. Currently patient is on Zosyn as well as doxycycline. His procalcitonin has been negative. I will continue with Zosyn for another 24 hours and if there is no concern I will discontinue Zosyn. For INR of 8.1 will give 2.5mg of vitamin K p.o. I have personally spent 61 minutes of critical care time in the direct management of this patient. This is a life/limb threatening event. This includes time spent evaluating patient, direct bedside care, chart review, placing orders, interpretation of diagnostic studies, discussion with consultants, patient, and family members, as well as other required patient management activities. This time is exclusive of all separately billable procedures, and teaching time and separate from and in addition to any other critical care service time. Please note the above document was generated using voice recognition software. It may contain grammatical, syntax or spelling errors. Please note the above document was generated using voice recognition software. It may contain grammatical, syntax or spelling errors.Any formal questions or concerns about the content, text or information contained within the body of this dictation should be directly addressed to the provider for clarification. (2) COVID-19: (3) Pneumonia due to 2019 novel coronavirus: Admission and Anticipated Discharge Date Admission Date: February 09, 2020 Subjective Was called to evaluate the patient today and he was having respiratory distress. At the time of examination patient was on BiPAP breathing in high 30s. On 60% FiO2 saturating 94% BiPAP support He was able to talk in short sentences. On asking whether he was short of breath he replied that he was having any issues with the mask Denied any anxiety issues. Advised the patient to just take deep breaths in and out his respiratory rate did go down to low 30s to high 20s. Patient denies any chest pain, no headache, no nausea or vomiting. He did state that he is worried about his property taxes. Has been afebrile in the hospital. Dr Dumont was beside during the encounter. Review of Systems Review of Systems: All systems reviewed & are unremarkable except as noted in Subjective Physical Exam Physical Exam: Constitutional: In respiratory distress HEENT: EOMI, PERRLA Respiratory system: Decreased air entry bilaterally, no wheeze, no rhonchi, p ositive crackles bilateral lower lobes CVS: S1-S2 positive, no murmurs or gallops Abdomen: Soft, nontender, nondistended, positive bowel sounds x4, obese Extremities: +2 pulses bilaterally radialis/ dorsalis pedis, no cyanosis, no edema Neuro: Awake alert oriented x3 Psych: Normal mood and affect G/U: No [place] Skin: no rashes, warm and dry Lymphatic: no cervical or axillary lymphadenopathy Results & Data Results & Data ([facility]) Vital Signs (Past 12 Hours) Vital Signs Temp Pulse Pulse Pulse Resp BP BP 02/10/20 09:30 77 30 H 02/10/20 08:00 61 42 H 02/10/20 07:44 42 H 02/10/20 07:41 36.8 C 75 22 173/104 H 02/10/20 07:15 70 41 H 02/10/20 04:32 68 44 H 02/10/20 03:45 36.6 C 84 24 164/96 H 02/10/20 00:00 108 H 45 H 02/09/20 23:53 36.4 C L 76 20 151/87 H Pulse Ox 02/10/20 09:30 91 02/10/20 08:00 95 02/10/20 07:44 02/10/20 07:41 95 02/10/20 07:15 94 02/10/20 04:32 93 02/10/20 03:45 93 02/10/20 00:00 92 02/09/20 23:53 92 02/10/20 09:56 Coding Level of Care Code Critical Care 1st 30-74 mins Diagnoses Acute respiratory failure with hypoxia J96.01 COVID-19 U07.1 Pneumonia due to 2019 novel coronavirus U07.1; J12.89 Time Spent (min) 61
[2020-02-10 10:22] LABS: D Dimer 350 ug/L FEU (0-500); Prothrombin Time 76.5 Seconds (9.0-12.0)
[2020-02-10 10:32] LABS: Albumin Globulin Ratio 0.7 (0.9-2); Albumin Level 3.2 gm/dl (3.4-5.0); BUN Creatinine Ratio 37.6 (10-20); Calcium 9.6 mg/dl (8.5-10.1); Creatinine Clr Calc Pharmacy 73.2 ml/min; Est GFR (African American) 85.5; Est GFR (Non-African American) 73.8; Globulin 4.5 gm/dl (2.5-4.0); Potassium 4.2 mmol/L (3.5-5.1); Total Protein 7.7 gm/dl (6.4-8.2)
[2020-02-10 10:33] LABS: INR 8.1 (0.9-1.1)
[2020-02-10] MEDS ORDERED: FUROSEMIDE 20 MG in SYRINGE 0 ML IV ONE (11:30)
[2020-02-10] MEDS: PHYTONADIONE 5 MG TAB PO STA ×2 (11:41→11:50)
[2020-02-10] MEDS ORDERED: FUROSEMIDE 40 MG/4 ML VIAL IV ONE (11:42)
[2020-02-10] MEDS: METOPROLOL TARTRATE 1 MG/ML VIAL IV SCH ×3 (12:22→23:30)
--- NOTE | 2020-02-10 12:50 | Electrocardiogram Report ---
Test Reason : Blood Pressure : / mmHG Vent. Rate : 103 BPM Atrial Rate : 103 BPM P-R Int : 168 ms QRS Dur : 136 ms QT Int : 386 ms P-R-T Axes : 027 038 131 degrees QTc Int : 505 ms Sinus tachycardia with Premature atrial complexes Left bundle branch block Abnormal ECG When compared with ECG of 04-FEB-2020 12:20, Premature atrial complexes are now Present T wave inversion now evident in Lateral leads Confirmed by Laureano Wolf ([id number]) on 02/10/2020 12:50:14 PM Referred By: REFERRED SELF Confirmed By:Laureano Wolf
[2020-02-10] MEDS: PIPERACILLIN/TAZOBACTAM 4.5 GM in DEXTROSE 5% 100 ML IV SCH ×2 (13:44→21:29)
[2020-02-10] MEDS: DEXMEDETOMIDINE HCL 200 MCG in SODIUM CHLORIDE 0.9% 48 ML IV SCH ×2 (15:30→15:31)
[2020-02-10] MEDS: REMDESIVIR 100 MG in SODIUM CHLORIDE 0.9% 230 ML IV SCH (19:28)
[2020-02-10] MEDS: guaiFENesin 600 MG TABCR PO SCH (19:29)
[2020-02-10] MEDS: DOXYCYCLINE HYCLATE 100 MG in DEXTROSE 5% 100 ML IV SCH (19:29)
[2020-02-10] MEDS: SODIUM CHLORIDE 0.9% 10ML FLUSH IV SCH (19:30)
--- NOTE | 2020-02-10 22:07 | Communication Note ---
Date of Service: February 10, 2020 Lactic acid level remains persistently elevated 3.9 possible combination of hypoxia and poor perfusion /dehydration management for resp failure as outlined ordered IV fluid repeat Lactic acid ordered in 4 hrs Niyah Dumont MD
[2020-02-10] MEDS: LACTATED RINGER'S 1,000 ML IV SCH (23:20)
[2020-02-11 05:17] LABS: Basophils # (auto) 0.02 K/uL (0-0.2); Basophils % (auto) 0.2 %; Hematocrit (blood only) 43.8 % (42-52); Hemoglobin 14.6 g/dL (14.0-18.0); Immature Granulocytes # (auto) 0.06 K/uL (0.00-0.02); Immature Granulocytes % (auto) 0.5 %; Lymphocytes # (auto) 0.65 K/uL (1.2-3.4); Lymphocytes % (auto) 5.9 %; Mean Corpuscular Hemoglobin 30.7 pg (25-34); Mean Corpuscular Hgb Conc 33.3 g/dL (32-36); Mean Platelet Volume 11.1 fL (7.4-10.4); Monocytes # (auto) 0.18 K/uL (0.11-0.59); Monocytes % (auto) 1.6 %; Neutrophils # (auto) 10.12 K/uL (1.4-6.5); Neutrophils % (auto) 91.8 %; Platelet Count 354 K/uL (130-400); RDW Standard Deviation 43.8 fL (36.4-46.3); Red Blood Count 4.76 M/uL (4.7-6.1); White Blood Count 11.03 K/uL (4.8-10.8)
[2020-02-11] MEDS: PIPERACILLIN/TAZOBACTAM 4.5 GM in DEXTROSE 5% 100 ML IV SCH (05:28)
[2020-02-11 05:35] LABS: D Dimer 350 ug/L FEU (0-500)
[2020-02-11 05:40] LABS: INR 9.1 (0.9-1.1)
[2020-02-11 05:55] LABS: Albumin Level 2.8 gm/dl (3.4-5.0); BUN Creatinine Ratio 38.4 (10-20); Calcium 8.4 mg/dl (8.5-10.1); Creatinine Clr Calc Pharmacy 72.4 ml/min; Est GFR (African American) 85.5; Est GFR (Non-African American) 73.8; Magnesium 2.5 mg/dl (1.8-2.4); Potassium 4.3 mmol/L (3.5-5.1)
[2020-02-11 06:00] LABS: Albumin Globulin Ratio 0.8 (0.9-2); Ferritin 1324.7 ng/ml (8-388); Globulin 3.6 gm/dl (2.5-4.0); Phosphorus 4.1 mg/dl (2.5-4.9); Total Protein 6.4 gm/dl (6.4-8.2)
[2020-02-11 06:16] LABS: iSTAT Allen Test Pass; iSTAT Arterial Blood Gas HCO3 24 meg/L (19-24); iSTAT Arterial Blood Gas pCO2 29 mmHg (35-46); iSTAT Arterial Blood Gas pH 7.51 (7.35-7.45); iSTAT Arterial Blood Gas pO2 58 mmHg (80-95); iSTAT Carbon Dioxide 24 mmol/L (24-31); iSTAT FiO2 75 %; iSTAT Site R Radial
[2020-02-11] MEDS: METOPROLOL TARTRATE 1 MG/ML VIAL IV SCH ×3 (06:43→17:43)
[2020-02-11] MEDS: guaiFENesin 600 MG TABCR PO SCH ×2 (07:37→19:36)
[2020-02-11] MEDS: dexAMETHasone 10 MG in SYRINGE 0 ML IV SCH (07:37)
[2020-02-11] MEDS: DOXYCYCLINE HYCLATE 100 MG in DEXTROSE 5% 100 ML IV SCH (07:37)
[2020-02-11] MEDS: LACTATED RINGER'S 1,000 ML IV SCH (07:39)
--- NOTE | 2020-02-11 07:59 | XRay Report ---
XR chest 1V portable HISTORY: Follow-up pneumonia. COMPARISON: Chest 02/09/2020. FINDINGS: Slight progression of the bilateral patchy airspace opacities consistent with a viral pneum onia. Suspect a trace left pleural effusion. The heart remains mildly enlarged. There are poststernot chelsie changes. No pneumothorax. Cardiac valve prosthesis is again noted. Hiatus hernia is again identif ied. IMPRESSION: Slight progression of bilateral patchy airspace opacities consistent with a viral pneumonia. ACT 112: Negative or not required by law. Electronically signed by: Dennys Silva M.D. 02/11/2020 7:57 AM
--- NOTE | 2020-02-11 08:22 | Communication Note ---
Date of Service: February 11, 2020 INR elevated > 9 pt does not have Mechanical aortic valve S/P Transcatheter aortic valve replacement ( TAVR) using bioprosthesis ordered for 5 mg IV vit K repeat INR at 6 pm goal INR 2-3 Niyah Dumont MD
[2020-02-11] MEDS ORDERED: PHYTONADIONE 5 MG TAB PO STA (08:30)
[2020-02-11] MEDS ORDERED: PHYTONADIONE 5 MG in SODIUM CHLORIDE 0.9% 50 ML IV ONE (08:30)
--- NOTE | 2020-02-11 08:31 | Critical Care Progress Note ---
Date of Service February 11, 2020 Assessment & Plan (1) Pneumonia due to COVID-19 virus: Neurologic: No issues currently. Delirium precautions. Pulmonary: Alternate between high flow nasal cannula BiPAP as needed. Discussed in detail regarding self proning. The hiatal hernia will likely be an issue will prevent him from self proning. Continue Decadron for total of 10 days and remdesivir for total 5 days for Covid infection. Cardiovascular: We will check a troponin given his increased lactic acidosis. This lactic acidosis is improving. He has a history of a mechanical aortic valve due to bicuspid aortic valve. We will give another dose of 2.5 mg of vitamin K today as his INR is 9.1. His goal INR is 2.5-3.5. Gastrointestinal: We will start him on 40 mg twice daily of pantoprazole given high dose requirement of steroids, hiatal hernia and anticoagulation status. Continue diet. Renal: No issues currently. Lactic acidosis appears to be improving. No signs of tissue hypoperfusion at this time. Checking a troponin as noted above. Infectious disease: Blood cultures from 02/04/2020 demonstrated gram-positive cocci in clusters. 1 set of 2 were positive. These cultures were coag negative staph. Likely contaminant. Follow-up cultures were negative. I am disconti nuing Zosyn. Continue doxycycline for total 5 days for possible atypical bacterial pneumonia. Discontinuation of Zosyn will hopefully allow for the INR to trend down as well. Hematologic: No issues currently. No signs of bleeding. Endocrine: Monitor glucose closely while on Decadron. VTE prophylaxis: Currently on warfarin CODE STATUS: Full code Family at bedside: Not available due to the COVID-19 pandemic Disposition: Remain in the ICU today. Patient has a guarded prognosis at this time. He has a high likelihood of possible decompensation requiring mechanical ventilation and intubation. I have personally spent 43 minutes of critical care time in the direct management of this patient. This is a life/limb threatening event. This includes time spent evaluating patient, direct bedside care, chart review, placing orders, interpretation of diagnostic studies, discussion with consultants, patient, and family members, as well as other required patient management activities. This time is exclusive of all separately billable procedures, and teaching time and separate from and in addition to any other critical care service time. Thank you for allowing us to participate in the care of this patient. (2) Respiratory failure: (3) History of bicuspid aortic valve: (4) Hypertension: (5) Aortic aneurysm: (6) Severe sepsis: Admission and Anticipated Discharge Date Admission Date: February 09, 2020 Subjective Patient seen and examined today. He is requiring 80% FiO2 and 60 L of oxygen. He relates that his shortness of breath is minimal. He is eating breakfast. He has a significant hiatal hernia and notes "that it is uncomfortable" to lay prone. He thinks that he was able to lay on his side for 45 minutes yesterday. No fevers or chills overnight. Denies any chest pain currently. Review of Systems Review of Systems: All systems reviewed & are unremarkable except as noted in HPI & below Physical Exam Constitutional: WD/WN, vitals as above Eyes: PERRL, conjunctivae normal, anicteric sclerae ENMT: external ear and nose normal, oropharynx normal Neck: normal visual inspection Respiratory: normal respiratory effort, lungs clear to auscultation Cardiovascular: RRR, no murmur, no edema Gastrointestinal (Abdomen): normal bowel sounds, soft, nontender, no hepatosplenomegaly Musculoskeletal: no cyanosis or clubbing, extremities motor strength 5/5 Skin: no rashes, warm and dry Neurologic: PERRL, EOMI, accommodation nl, no face palsy, no dysarthria Psychiatric: A+Ox3, euthymic affect Results & Data Results & Data ([facility]) Vital Signs (Past 12 Hours) Vital Signs Temp Pulse Pulse Pulse Resp BP Pulse Ox 02/11/20 08:02 68 22 89 L 02/11/20 07:20 97.9 F 59 L 34 H 116/76 94 02/11/20 07:00 59 L 28 H 95 02/11/20 06:20 63 22 120/78 90 02/11/20 05:42 65 19 138/82 90 02/11/20 05:21 65 29 H 138/82 90 02/11/20 04:20 61 29 H 104/73 95 02/11/20 04:00 98.2 F 02/11/20 03:20 58 L 27 H 112/70 95 02/11/20 02:27 58 L 24 94 02/11/20 02:20 59 L 26 H 106/70 94 02/11/20 01:20 59 L 28 H 107/66 96 02/11/20 00:20 59 L 22 116/78 96 02/11/20 00:00 97.7 F 02/10/20 23:59 70 02/10/20 23:37 70 26 H 122/78 90 02/10/20 23:30 75 129/84 02/10/20 23:20 72 25 H 129/84 93 02/10/20 23:15 71 22 95 02/10/20 22:20 84 24 143/92 H 91 02/10/20 21:20 75 28 H 137/83 95 I reviewed the vital signs, labs and imaging Coding Level of Care Code Critical Care 1st 30-74 mins Diagnoses Pneumonia due to COVID-19 virus U07.1; J12.89 Respiratory failure J96.01 Chronicity: acute Respiratory failure complication: hypoxia History of bicuspid aortic valve Z87.74 Hypertension I10 Aortic aneurysm I71.9 Severe sepsis A41.9; R65.20 Time Spent (min) 43 (1) Respiratory failure Chronicity: acute Respiratory failure complication: hypoxia Qualified Code(s): J96.01 - Acute respiratory failure with hypoxia
[2020-02-11] MEDS: PANTOprazole 40 MG TAB PO SCH ×2 (08:57→19:37)
--- NOTE | 2020-02-11 18:29 | Hospitalist Progress Note ---
Date of Service February 11, 2020 Assessment & Plan (1) Severe sepsis: meets SIRS criteria : tachycardic , tachypneic , leukocytosis elevated Lactic acid level source of infection : COVID 19 pneumonia lactic acidosis due to Hypoxemia , Pro calcitonin negative , on High flow 02 pulmonology /critical care consulted -appreciate input (2) Acute respiratory failure with hypoxia: COVID-19 + Saturday 02/03 with history 1 weeks of cough and shortness of breath/had diarrhea /poor appetite , body ache , generalized weakness was discharged from ER admitted on 02/09/20 for acute hypoxic respiratory failure with saturation less than 70% on room air at presentation with increased work for breathing on high flow 02 started on IV remdesivir/Dexamethasone Convalescent plasma not ordered as symptoms > 20 days blood culture on 02/04/20 : one bottle gram positive cocci in clusters , no sensitivity available PCR For MRSA negative-no tx needed ( possible contamination ) repeat blood cultures ordered on this admission 02/08 (3) Pneumonia due to COVID-19 virus: management as outlined above (4) Status post transcatheter aortic valve replacement (TAVR) using bioprosthesis: No acute chest pain and/or palpitation BNP normal , no evidence of CHF cont monitor one set of gram positive blood culture 1 week back possible due to contamination will follow repeat blood culture report on coumadin INR elevated > 9 given vit K stable cardiac status (5) History of bicuspid aortic valve: (6) Hypertension: hypertensive episode due to respiratory distress /anxiety attack cont out pt meds (7) Hypercholesterolemia: on statin (8) Barretts esophagus: changed PPI to IV (9) Aortic aneurysm: No acute symptoms DVT prophylaxis INR elevated CODE STATUS Full Disposition : to be determined remains critically ill Pt/OT eval when medically stable pt is AAO x3 , declined offer to call family members and update his current status Admission and Anticipated Discharge Date Admission Date: February 09, 2020 Subjective FOLLOW UP VISIT FOR ACUTE HYPOXEMIC RESPIRATORY FAILURE /COVID 19 PNEUMONIA : on High flow 02 has cough denies of feeling for SOB has been afebrile with stable vitals Review of Systems Review of Systems: All systems reviewed & are unremarkable except as noted in HPI & below Physical Exam Constitutional: WD/WN, vitals as above Eyes: + anicteric sclerae ENMT: external ear and nose normal, oropharynx normal Neck: trachea midline, no thyromegaly Respiratory: + respiratory distress, + cough, able to speak in complete s entences, + tachypneic and + prolonged expiratory phase Auscultation: + diminished lung sounds Cardiovascular: Rate/Rhythm: regular rate, regular rhythm and + tachycardic Extremities: no edema Gastrointestinal (Abdomen): Percussion/Palpation: abdomen soft; abdomen nontender Musculoskeletal: no cyanosis or clubbing, extremities motor strength 5/5 Skin: no rashes, warm and dry Neurologic: PERRL, EOMI, accommodation nl, no face palsy, no dysarthria Psychiatric: Orientation: alert and oriented x 3 Affect: + anxious affect Results & Data Results & Data ([facility]) Vital Signs (Past 12 Hours) Vital Signs Temp Pulse Pulse Resp BP Pulse Ox 02/11/20 18:00 75 28 H 90 02/11/20 17:45 86 38 H 115/77 92 02/11/20 17:43 85 115/77 02/11/20 17:21 94 H 20 139/74 88 L 02/11/20 17:00 83 23 93 02/11/20 16:21 75 20 112/71 92 02/11/20 16:10 68 20 90 02/11/20 16:00 37.2 C 76 25 H 90 02/11/20 15:21 77 28 H 120/87 87 L 02/11/20 15:00 85 29 H 92 02/11/20 14:20 77 31 H 126/83 92 02/11/20 14:00 76 28 H 92 02/11/20 13:20 73 32 H 111/74 94 02/11/20 13:00 100 H 25 H 92 02/11/20 12:55 75 34 H 119/65 93 02/11/20 12:20 83 38 H 120/64 89 L 02/11/20 12:00 77 37 H 94 02/11/20 11:45 85 26 H 98 02/11/20 11:20 77 33 H 121/82 92 02/11/20 11:00 63 18 94 02/11/20 10:20 83 22 123/79 92 02/11/20 10:00 99 H 20 02/11/20 09:20 85 23 141/71 H 86 L 02/11/20 09:00 85 32 H 91 02/11/20 08:21 86 12 135/88 92 02/11/20 08:02 68 22 89 L 02/11/20 08:00 78 10 L 86 L 02/11/20 07:20 36.6 C 59 L 34 H 116/76 94 02/11/20 07:00 59 L 28 H 95
[2020-02-11] MEDS: REMDESIVIR 100 MG in SODIUM CHLORIDE 0.9% 230 ML IV SCH (19:34)
[2020-02-11] MEDS: DOXYCYCLINE HYCLATE 100 MG CAP PO SCH (19:35)
[2020-02-11] MEDS: SODIUM CHLORIDE 0.9% 10ML FLUSH IV SCH (19:37)
[2020-02-11 20:15] LABS: INR 1.5 (0.9-1.1); Prothrombin Time 15.6 Seconds (9.0-12.0)
[2020-02-11] MEDS ORDERED: Heparin IV Adult Wt-Based Standard WITH Bolus Protocol IV STA (20:57)
[2020-02-11] MEDS ORDERED: diphenhydrAMINE Capsule 25 MG CAP PO ONE ×3 (21:00→23:00)
[2020-02-11 21:24] LABS: Partial Thromboplastin Ratio 1.2; Partial Thromboplastin Time 32.1 Seconds (21.0-31.0)
[2020-02-11] MEDS: HEPARIN SODIUM/DEXTROSE 25,000 UNITS/500 ML BAG IV SCH (21:26)
[2020-02-11] MEDS ORDERED: HEPARIN IV BOLUS 6,000 UNITS in SYRINGE 0 ML IV ONE (21:30)
[2020-02-12] MEDS: METOPROLOL TARTRATE 1 MG/ML VIAL IV SCH ×2 (00:44→06:40)
[2020-02-12 04:30] LABS: Basophils # (auto) 0.01 K/uL (0-0.2); Basophils % (auto) 0.1 %; Hematocrit (blood only) 40.2 % (42-52); Hemoglobin 13.8 g/dL (14.0-18.0); Immature Granulocytes # (auto) 0.07 K/uL (0.00-0.02); Immature Granulocytes % (auto) 0.7 %; Lymphocytes # (auto) 0.75 K/uL (1.2-3.4); Lymphocytes % (auto) 7.2 %; Mean Corpuscular Hemoglobin 30.7 pg (25-34); Mean Corpuscular Hgb Conc 34.3 g/dL (32-36); Mean Corpuscular Volume 89.5 fL (80-100); Mean Platelet Volume 10.8 fL (7.4-10.4); Monocytes # (auto) 0.09 K/uL (0.11-0.59); Monocytes % (auto) 0.9 %; Neutrophils # (auto) 9.46 K/uL (1.4-6.5); Neutrophils % (auto) 91.1 %; Platelet Count 354 K/uL (130-400); RDW Coefficient of Variation 12.8 % (11.5-14.5); RDW Standard Deviation 41.5 fL (36.4-46.3); Red Blood Count 4.49 M/uL (4.7-6.1); White Blood Count 10.38 K/uL (4.8-10.8)
[2020-02-12 04:50] LABS: INR 1.4 (0.9-1.1); Prothrombin Time 14.2 Seconds (9.0-12.0)
[2020-02-12 04:56] LABS: BUN Creatinine Ratio 38.2 (10-20); Creatinine Clr Calc Pharmacy 83.4 ml/min; Est GFR (African American) 101.5; Est GFR (Non-African American) 87.6; Magnesium 2.4 mg/dl (1.8-2.4); Potassium 4.8 mmol/L (3.5-5.1)
[2020-02-12 05:09] LABS: Ferritin 1370.5 ng/ml (8-388); Phosphorus 3.2 mg/dl (2.5-4.9)
[2020-02-12 07:05] LABS: Partial Thromboplastin Time 83.4 Seconds (21.0-31.0)
[2020-02-12] MEDS: DOXYCYCLINE HYCLATE 100 MG CAP PO SCH ×2 (08:55→19:53)
[2020-02-12] MEDS: dexAMETHasone 6 MG in SYRINGE 0 ML IV SCH (08:55)
[2020-02-12] MEDS: PANTOprazole 40 MG TAB PO SCH ×2 (08:56→21:02)
[2020-02-12] MEDS: guaiFENesin 600 MG TABCR PO SCH ×2 (08:56→21:01)
[2020-02-12] MEDS: DEXMEDETOMIDINE HCL 200 MCG in SODIUM CHLORIDE 0.9% 48 ML IV SCH (10:11)
[2020-02-12] MEDS ORDERED: LORazepam 0.5 MG TAB PO ONE (11:00)
--- NOTE | 2020-02-12 11:21 | Critical Care Progress Note ---
Date of Service February 12, 2020 Assessment & Plan (1) Pneumonia due to COVID-19 virus: Neurologic: No issues currently. Delirium precautions. Pulmonary: Alternate between high flow nasal cannula BiPAP as needed. Discussed in detail regarding self proning. The hiatal hernia will likely be an issue will prevent him from self proning. Continue Decadron for total of 10 days and remdesivir for total 5 days for Covid infection. Cardiovascular: We will check a troponin given his increased lactic acidosis. This lactic acidosis is improving. He has a history of a mechanical aortic valve due to bicuspid aortic valve. His INR has unfortunately dropped to 1.5. We have started him on a heparin drip. We will give him 5 mg of warfarin today. His goal INR is 2.0-3.0. Troponin is negative. Gastrointestinal: Continue 40 mg twice daily of pantoprazole given high dose requirement of s teroids, hiatal hernia and anticoagulation status. Continue diet. Renal: No issues currently. Infectious disease: Blood cultures from 02/04/2020 demonstrated gram-positive cocci in clusters. 1 set of 2 were positive. These cultures were coag negative staph. Likely contaminant. Continue doxycycline for total 5 days for possible atypical bacterial pneumonia. Hematologic: No issues currently. No signs of bleeding. Endocrine: Monitor glucose closely while on Decadron. VTE prophylaxis: Currently on warfarin and heparin CODE STATUS: Full code Family at bedside: Not available due to the COVID-19 pandemic Disposition: Remain in the ICU today. Patient has a guarded prognosis at this time. He has a high likelihood of possible decompensation requiring mechanical ventilation and intubation. I have personally spent 42 minutes of critical care time in the direct management of this patient. This is a life/limb threatening event. This includes time spent evaluating patient, direct bedside care, chart review, placing orders, interpretation of diagnostic studies, discussion with consultants, patient, and family members, as well as other required patient management activities. This time is exclusive of all separately billable procedures, and teaching time and separate from and in addition to any other critical care service time. Thank you for allowing us to participate in the care of this patient. (2) Respiratory failure: (3) History of bicuspid aortic valve: (4) Hypertension: (5) Aortic aneurysm: (6) Severe sepsis: Admission and Anticipated Discharge Date Admission Date: February 09, 2020 Subjective Patient continues with severe hypoxia. Patient notes that he was able to present for approximately 6 hours last night. He then developed chest discomfort and laid supine. He denies any chest discomfort this morning. Appetite is poor. He feels fatigued. He is very anxious and feeling bit sad. He notes that he has 2 dogs at home that friend is watching. He has a sister that he is loosely close with. Family and friends are aware of his condition. Review of Systems Review of Systems: All systems reviewed & are unremarkable except as noted in HPI & below Physical Exam Constitutional: WD/WN, vitals as above Eyes: PERRL, conjunctivae normal, anicteric sclerae ENMT: external ear and nose normal, oropharynx normal Neck: normal visual inspection Respiratory: + labored breathing and + tachypneic Cardiovascular: RRR, no murmur, no edema Gastrointestinal (Abdomen): normal bowel sounds, soft, nontender, no hepatosplenomegaly Musculoskeletal: no cyanosis or clubbing, extremities motor strength 5/5 Skin: no rashes, warm and dry Neurologic: PERRL, EOMI, accommodation nl, no face palsy, no dysarthria Psychiatric: A+Ox3, euthymic affect Results & Data Results & Data ([facility]) Vital Signs (Past 12 Hours) Vital Signs Temp Pulse Pulse Pulse Resp BP BP 02/12/20 11:10 71 02/12/20 11:05 97.7 F 76 22 147/86 H 02/12/20 10:00 82 02/12/20 09:42 90 150/98 H 02/12/20 09:23 74 24 02/12/20 09:15 67 21 02/12/20 09:00 67 27 H 02/12/20 08:36 60 20 02/12/20 08:00 82 02/12/20 06:40 51 L 127/85 02/12/20 03:07 64 24 02/12/20 00:44 61 122/80 02/12/20 00:00 61 122/80 Pulse Ox 02/12/20 11:10 94 02/12/20 11:05 93 02/12/20 10:00 95 02/12/20 09:42 90 02/12/20 09:23 93 02/12/20 09:15 90 02/12/20 09:00 87 L 02/12/20 08:36 89 L 02/12/20 08:00 02/12/20 06:40 02/12/20 03:07 90 02/12/20 00:44 02/12/20 00:00 88 L I reviewed the vital signs, labs and imaging Coding Level of Care Code Critical Care 1st 30-74 mins Diagnoses Pneumonia due to COVID-19 virus U07.1; J12.89 Respiratory failure J96.01 Chronicity: acute Respiratory failure complication: hypoxia History of bicuspid aortic valve Z87.74 Hypertension I10 Aortic aneurysm I71.9 Severe sepsis A41.9; R65.20 Time Spent (min) 42 (1) Respiratory failure Chronicity: acute Respiratory failure complication: hypoxia Qualified Code(s): J96.01 - Acute respiratory failure with hypoxia
[2020-02-12] MEDS ORDERED: METOPROLOL TARTRATE 25 MG TAB PO ONE (12:00)
[2020-02-12] MEDS ORDERED: WARFARIN SOD 5 MG TAB PO ONE (12:00)
[2020-02-12 15:01] LABS: Partial Thromboplastin Ratio 2.3
--- NOTE | 2020-02-12 16:20 | Hospitalist Progress Note ---
Date of Service February 12, 2020 Assessment & Plan (1) Severe sepsis: meets SIRS criteria : tachycardic , tachypneic , leukocytosis elevated Lactic acid level source of infection : COVID 19 pneumonia lactic acidosis due to Hypoxemia , Pro calcitonin negative , on High flow 02 pulmonology /critical care consulted -appreciate input continue on High fow 02 (2) Acute respiratory failure with hypoxia: COVID-19 + Saturday 02/03 with history 1 weeks of cough and shortness of breath/had diarrhea /poor appetite , body ache , generalized weakness was discharged from ER admitted on 02/09/20 for acute hypoxic respiratory failure with saturation less than 70% on room air at presentation with increased work for breathing on high flow 02 started on IV remdesivir/Dexamethasone Convalescent plasma not ordered as symptoms > 20 days blood culture on 02/04/20 : one bottle gram positive cocci in clusters , no sensitivity available PCR For MRSA negative-no tx needed ( possible contamination ) repeat blood cultures ordered on this admission 02/08 -negative growth (3) Pneumonia due to COVID-19 virus: management as outlined above (4) Status post transcatheter aortic valve replacement (TAVR) using bioprosthesis: No acute chest pain and/or palpitation BNP normal , no evidence of CHF cont monitor on coumadin vit K given as INR was elevated > 9 INR subtheraputic 1.4 now , resumed coumadin with IV heparin bridge goal INR 2-3 stable cardiac status (5) History of bicuspid aortic valve: s/p TAVR with bio prothesitc valve replacement (6) Hypertension: had hypertensive episode due to respiratory distress /anxiety attack bp improved now cont out pt meds (7) Hypercholesterolemia: on statin (8) Barretts esophagus: changed PPI to IV (9) Aortic aneurysm: No acute symptoms DVT prophylaxis coumadin , Iv heparin CODE STATUS Full Disposition : to be determined remains critically ill Pt/OT eval when medically stable Admission and Anticipated Discharge Date Admission Date: February 09, 2020 Subjective FOLLOW UP VISIT FOR ACUTE HYPOXEMIC RESPIRATORY FAILURE /COVID 19 PNEUMONIA : remains on High flow 02 /says his SOB has improved speaking in complete sentences has cough denies of feeling for SOB has been afebrile with stable vitals Review of Systems Review of Systems: All systems reviewed & are unremarkable except as noted in HPI & below Respiratory: + cough Physical Exam Constitutional: WD/WN, vitals as above Eyes: + anicteric sclerae ENMT: external ear and nose normal, oropharynx normal Neck: trachea midline, no thyromegaly Respiratory: + respiratory distress, + cough, able to speak in complete sentences, + tachypneic and + prolonged expiratory phase Auscultation: + diminished lung sounds Cardiovascular: Rate/Rhythm: regular rate, regular rhythm and + tachycardic Extremities: no edema Gastrointestinal (Abdomen): Percussion/Palpation: abdomen soft; abdomen nontender Musculoskeletal: no cyanosis or clubbing, extremities motor strength 5/5 Skin: no rashes, warm and dry Neurologic: PERRL, EOMI, accommodation nl, no face palsy, no dysarthria Psychiatric: Orientation: alert and oriented x 3 Results & Data Results & Data ([facility]) Vital Signs (Past 12 Hours) Vital Signs Temp Pulse Pulse Pulse Resp BP BP 02/12/20 15:18 72 24 02/12/20 14:00 94 H 02/12/20 13:15 94 H 133/87 02/12/20 13:00 102 H 02/12/20 12:00 73 02/12/20 11:45 80 02/12/20 11:44 83 153/112 H 02/12/20 11:10 71 02/12/20 11:05 36.5 C 76 22 147/86 H 02/12/20 11:04 74 147/86 H 02/12/20 10:00 82 02/12/20 09:42 90 150/98 H 02/12/20 09:23 74 24 02/12/20 09:15 67 21 02/12/20 09:00 67 27 H 02/12/20 08:36 60 20 02/12/20 08:00 82 02/12/20 06:40 51 L 127/85 Pulse Ox 02/12/20 15:18 94 02/12/20 14:00 92 02/12/20 13:15 02/12/20 13:00 91 02/12/20 12:00 94 02/12/20 11:45 94 02/12/20 11:44 92 02/12/20 11:10 94 02/12/20 11:05 93 02/12/20 11:04 93 02/12/20 10:00 95 02/12/20 09:42 90 02/12/20 09:23 93 02/12/20 09:15 90 02/12/20 09:00 87 L 02/12/20 08:36 89 L 02/12/20 08:00 02/12/20 06:40
[2020-02-12] MEDS: HEPARIN SODIUM/DEXTROSE 25,000 UNITS/500 ML BAG IV SCH (19:01)
[2020-02-12] MEDS: REMDESIVIR 100 MG in SODIUM CHLORIDE 0.9% 230 ML IV SCH (19:53)
[2020-02-12] MEDS: METOPROLOL TARTRATE 25 MG TAB PO SCH (21:00)
[2020-02-12] MEDS: SODIUM CHLORIDE 0.9% 10ML FLUSH IV SCH (21:03)
[2020-02-12] MEDS ORDERED: diphenhydrAMINE Capsule 25 MG CAP PO ONE (21:11)
[2020-02-13] MEDS: dexAMETHasone 6 MG in SYRINGE 0 ML IV SCH (07:54)
[2020-02-13] MEDS: METOPROLOL TARTRATE 25 MG TAB PO SCH ×2 (07:54→20:11)
[2020-02-13] MEDS: PANTOprazole 40 MG TAB PO SCH ×2 (07:54→20:09)
[2020-02-13] MEDS: guaiFENesin 600 MG TABCR PO SCH ×2 (07:55→20:08)
[2020-02-13] MEDS: DOXYCYCLINE HYCLATE 100 MG CAP PO SCH ×2 (07:55→20:08)
[2020-02-13 08:53] LABS: INR 1.4 (0.9-1.1); Prothrombin Time 14.6 Seconds (9.0-12.0)
--- NOTE | 2020-02-13 09:03 | XRay Report ---
SINGLE VIEW CHEST CLINICAL HISTORY: Follow-up pneumonia. FINDINGS: An AP, portable, upright chest radiograph is compared to study dated 02/11/2020 and correla luis enrique with chest CT dated 12/25/2016. The examination is degraded by portable technique, apical lordoti c positioning, and patient rotation. The patient is status post midline sternotomy. The heart is enla rged. A large hiatal hernia is noted. Multifocal airspace consolidation is unchanged from previous. N o large pleural effusion or pneumothorax is seen. The skeletal structures are osteopenic. There is ch ronic posttraumatic deformity of the right clavicle. IMPRESSION: Multifocal airspace consolidation has not significantly changed from 02/11/2020. ACT 112: Negative or not required by law. Electronically signed by: Sav Bernard M.D. 02/13/2020 9:02 AM
[2020-02-13 09:15] LABS: BUN Creatinine Ratio 37.2 (10-20); Calcium 8.7 mg/dl (8.5-10.1); Creatinine Clr Calc Pharmacy 78.1 ml/min; Est GFR (African American) 92.9; Est GFR (Non-African American) 80.2; Magnesium 2.3 mg/dl (1.8-2.4); Phosphorus 2.4 mg/dl (2.5-4.9); Potassium 4.2 mmol/L (3.5-5.1)
--- NOTE | 2020-02-13 10:29 | Critical Care Progress Note ---
Date of Service February 13, 2020 Assessment & Plan (1) Acute respiratory failure with hypoxia: Continue Decadron for COVID-19 infection. Continue remdesivir per hospital protocol. Continue heparin and warfarin for history of aortic valve replacement. Continue heparin until INR is above 2. Continue metoprolol 12.5 mg twice daily for rate control. Continue diet. Doxycycline for 5 days for possible atypical bacterial pneumonia. Continue self proning as able. Continue high flow oxygen and BiPAP to maintain saturations of 92 to 94%. Patient can be downgraded from ICU status at this point. Pulmonary will continue to follow on an as-needed basis. Thank you for allowing us to participate in the care of this patient. (2) Pneumonia due to COVID-19 virus: (3) Status post transcatheter aortic valve replacement (TAVR) using bioprosthesis: (4) Severe sepsis: Admission and Anticipated Discharge Date Admission Date: February 09, 2020 Subjective Continues on high flow nasal cannula. No significant changes from yesterday. Attempting self proning. Review of Systems Review of Systems: All systems reviewed & are unremarkable except as noted in HPI & below Physical Exam Constitutional: WD/WN, vitals as above Eyes: PERRL, conjunctivae normal, anicteric sclerae ENMT: external ear and nose normal, oropharynx normal Neck: normal visual inspection Respiratory: + labored breathing and + tachypneic Cardiovascular: RRR, no murmur, no edema Gastrointestinal (Abdomen): normal bowel sounds, soft, nontender, no hepatosplenomegaly Musculoskeletal: no cyanosis or clubbing, extremities motor strength 5/5 Skin: no rashes, warm and dry Neurologic: PERRL, EOMI, accommodation nl, no face palsy, no dysarthria Psychiatric: A+Ox3, euthymic affect Results & Data Results & Data ([facility]) Vital Signs (Past 12 Hours) Vital Signs Temp Pulse Pulse Pulse Resp BP BP 02/13/20 08:00 79 22 138/71 02/13/20 07:57 97.5 F L 86 26 H 138/71 02/13/20 07:51 76 28 H 02/13/20 07:00 85 24 116/72 02/13/20 06:18 97.5 F L 81 21 116/72 02/13/20 04:21 70 24 02/13/20 04:04 97.5 F L 82 20 127/78 02/13/20 03:33 97.7 F 84 22 135/89 02/12/20 23:36 77 22 02/12/20 23:34 81 123/93 Pulse Ox 02/13/20 08:00 90 02/13/20 07:57 89 L 02/13/20 07:51 84 L 02/13/20 07:00 88 L 02/13/20 06:18 91 02/13/20 04:21 90 02/13/20 04:04 91 02/13/20 03:33 90 02/12/20 23:36 96 02/12/20 23:34 98 I reviewed vital signs, labs and imaging Coding Level of Care Code 89611 Subseq Hosp Care Lvl 2 Diagnoses Acute respiratory failure with hypoxia J96.01 Pneumonia due to COVID-19 virus U07.1; J12.89 Status post transcatheter aortic valve replacement (TAVR) using bioprosthesis Z95.3 Severe sepsis A41.9; R65.20
[2020-02-13 10:48] LABS: Basophils # (auto) 0.01 K/uL (0-0.2); Basophils % (auto) 0.1 %; Eosinophils # (auto) 0.03 K/uL (0-0.5); Eosinophils % (auto) 0.2 %; Hematocrit (blood only) 44.4 % (42-52); Hemoglobin 15.5 g/dL (14.0-18.0); Immature Granulocytes # (auto) 0.08 K/uL (0.00-0.02); Immature Granulocytes % (auto) 0.6 %; Lymphocytes # (auto) 0.56 K/uL (1.2-3.4); Lymphocytes % (auto) 4.3 %; Mean Corpuscular Hemoglobin 31.2 pg (25-34); Mean Corpuscular Hgb Conc 34.9 g/dL (32-36); Mean Corpuscular Volume 89.3 fL (80-100); Mean Platelet Volume 11.7 fL (7.4-10.4); Monocytes # (auto) 0.23 K/uL (0.11-0.59); Monocytes % (auto) 1.8 %; Neutrophils # (auto) 12.15 K/uL (1.4-6.5); Platelet Count 376 K/uL (130-400); RDW Coefficient of Variation 13.1 % (11.5-14.5); RDW Standard Deviation 42.5 fL (36.4-46.3); Red Blood Count 4.97 M/uL (4.7-6.1); White Blood Count 13.06 K/uL (4.8-10.8)
[2020-02-13 11:10] LABS: Partial Thromboplastin Ratio > 5.0
[2020-02-13 11:17] LABS: Partial Thromboplastin Time > 139.0 Seconds (21.0-31.0)
[2020-02-13] MEDS ORDERED: WARFARIN SOD 5 MG TAB PO ONE (12:00)
[2020-02-13 12:58] LABS: Partial Thromboplastin Ratio 2.4
[2020-02-13 13:32] LABS: Partial Thromboplastin Time 68.2 Seconds (21.0-31.0)
[2020-02-13] MEDS: HEPARIN SODIUM/DEXTROSE 25,000 UNITS/500 ML BAG IV SCH ×2 (14:25→16:39)
--- NOTE | 2020-02-13 14:51 | Electrocardiogram Report ---
Test Reason : Blood Pressure : / mmHG Vent. Rate : 071 BPM Atrial Rate : 071 BPM P-R Int : 184 ms QRS Dur : 144 ms QT Int : 456 ms P-R-T Axes : 031 045 095 degrees QTc Int : 495 ms Sinus rhythm with marked sinus arrhythmia Left bundle branch block Abnormal ECG When compared with ECG of 09-FEB-2020 14:27, Premature atrial complexes are no longer Present Confirmed by Gagan Valentin ([id number]) on 02/13/2020 2:50:32 PM Referred By: REFERRED SELF Confirmed By:Gadiel Valentin
--- NOTE | 2020-02-13 18:01 | Hospitalist Progress Note ---
Date of Service February 13, 2020 Assessment & Plan (1) Severe sepsis: Met SIRS criteria on admission with Elevated WBC, HR and RR with elevated lactate source of infection : COVID 19 pneumonia CXR on admission showed progression of bilateral airspace opacities consistent with an infectious process. Pro calcitonin negative blood culture on 02/04/20 grew Coag neg staph not lugdunensis (Mostly contamination ) Repeat blood cultures on 02/08 -negative growth Has been afebrile (2) Acute respiratory failure with hypoxia: (3) Pneumonia due to COVID-19 virus: Present on admission with worsening SOB/diarrhea and weakness COVID-19 positoive on 02/03 Continue IV remdesivir to complete 5 days course and Dexamethasone 6mg for 10 days Convalescent plasma not ordered as symptoms > 20 days Pulmonary /critical care on board Continue high flow oxygen supplement Continue Doxycycline x 5 days Clinically improves (4) Status post transcatheter aortic valve replacement (TAVR) using bioprosthesis: No acute chest pain and/or palpitation BNP normal , no evidence of CHF cont monitor Supratherapeutic INR INR on admission above 9 Received Vit K on admissiopn INR subtheraputic 1.4 resumed coumadin with IV heparin bridge goal INR 2-3 stable cardiac status (5) History of bicuspid aortic valve: s/p TAVR with bio prothesitc valve replacement (6) Hypertension: had hypertensive episode due to respiratory distress /anxiety attack BP stable cont out pt meds (7) Hypercholesterolemia: on statin (8) Barretts esophagus: Continue PPI (9) Aortic aneurysm: No acute symptoms DVT prophylaxis coumadin , Iv heparin CODE STATUS Full Disposition : Will transfer to PCU Pt/OT eval when medically stable Admission and Anticipated Discharge Date Admission Date: February 09, 2020 Subjective Pt was seen and examined for respiratory distress Lying in bed continue to require high flow oxygen He said that his breathing feels much better compared to yesterday He said that the phlegm is starting to get loose Denies any chest pain, palpitation, dizziness and fever Physical Exam Physical Exam: General- No acute distress Head- atraumatic Eyes- PERRL, EOMI, ENT- oropharynx clear Neck- supple, no JVD Lungs- +Tachypneic, diminished BS Heart- regular rhythm; no murmur Abdomen- normal bowel sounds, soft, nontender Extremities- no calf tenderness Neuro- alert, oriented x 3; PERRL, EOMI; no facial palsy; no dysarthria Skin- warm & dry Results & Data Results & Data ([facility]) Vital Signs (Past 12 Hours) Vital Signs Temp Pulse Pulse Pulse Resp BP BP 02/13/20 16:00 66 02/13/20 15:44 79 28 H 02/13/20 15:34 37.0 C 87 27 H 126/92 02/13/20 14:00 70 81 20 114/75 02/13/20 12:42 36.5 C 80 26 H 123/82 02/13/20 11:41 75 24 02/13/20 11:00 80 18 123/82 02/13/20 09:09 86 20 161/122 H 02/13/20 08:00 79 22 138/71 02/13/20 07:57 36.4 C L 86 26 H 138/71 02/13/20 07:51 76 28 H 02/13/20 07:00 85 24 116/72 02/13/20 06:18 36.4 C L 81 21 116/72 Pulse Ox 02/13/20 16:00 02/13/20 15:44 93 02/13/20 15:34 96 02/13/20 14:00 94 02/13/20 12:42 93 02/13/20 11:41 92 02/13/20 11:00 93 02/13/20 09:09 91 02/13/20 08:00 90 02/13/20 07:57 89 L 02/13/20 07:51 84 L 02/13/20 07:00 88 L 02/13/20 06:18 91
[2020-02-13] MEDS: REMDESIVIR 100 MG in SODIUM CHLORIDE 0.9% 230 ML IV SCH (20:06)
[2020-02-13 20:43] LABS: Partial Thromboplastin Ratio 3.1
[2020-02-13 20:45] LABS: Partial Thromboplastin Time 86.3 Seconds (21.0-31.0)
[2020-02-13] MEDS: SODIUM CHLORIDE 0.9% 10ML FLUSH IV SCH (21:09)
[2020-02-13] MEDS: diphenhydrAMINE Capsule 25 MG CAP PO PRN (21:50)
[2020-02-14 04:22] LABS: INR 1.8 (0.9-1.1); Partial Thromboplastin Ratio 2.2; Prothrombin Time 18.6 Seconds (9.0-12.0)
[2020-02-14 04:24] LABS: BUN Creatinine Ratio 32.3 (10-20); Calcium 8.3 mg/dl (8.5-10.1); Creatinine Clr Calc Pharmacy 75.1 ml/min; Est GFR (African American) 88.6; Est GFR (Non-African American) 76.4; Potassium 4.8 mmol/L (3.5-5.1)
[2020-02-14 04:26] LABS: Partial Thromboplastin Time 61.8 Seconds (21.0-31.0)
[2020-02-14] MEDS: HEPARIN SODIUM/DEXTROSE 25,000 UNITS/500 ML BAG IV SCH ×2 (06:14→21:59)
[2020-02-14] MEDS: dexAMETHasone 6 MG in SYRINGE 0 ML IV SCH (08:45)
[2020-02-14] MEDS: DOXYCYCLINE HYCLATE 100 MG CAP PO SCH (08:46)
[2020-02-14] MEDS: METOPROLOL TARTRATE 25 MG TAB PO SCH ×2 (08:47→20:42)
[2020-02-14] MEDS: guaiFENesin 600 MG TABCR PO SCH ×2 (08:47→20:44)
[2020-02-14] MEDS: PANTOprazole 40 MG TAB PO SCH ×2 (08:48→20:44)
--- NOTE | 2020-02-14 19:33 | Hospitalist Progress Note ---
Date of Service February 14, 2020 Assessment & Plan (1) Severe sepsis: Met SIRS criteria on admission with Elevated WBC, HR and RR with elevated lactate source of infection : COVID 19 pneumonia CXR on admission showed progression of bilateral airspace opacities consistent with an infectious process. Pro calcitonin negative blood culture on 02/04/20 grew Coag neg staph not lugdunensis (Mostly contamination ) Repeat blood cultures on 02/08 -negative growth Has been afebrile (2) Acute respiratory failure with hypoxia: (3) Pneumonia due to COVID-19 virus: Present on admission with worsening SOB/diarrhea and weakness COVID-19 positoive on 02/03 Continue IV remdesivir to complete 5 days course and Dexamethasone 6mg for 10 days Convalescent plasma not ordered as symptoms > 20 days Pulmonary /critical care on board Continue high flow oxygen supplement Continue Doxycycline x 5 days Clinically improves (4) Status post transcatheter aortic valve replacement (TAVR) using bioprosthesis: No acute chest pain and/or palpitation BNP normal , no evidence of CHF cont monitor Supratherapeutic INR INR on admission above 9 Received Vit K on admissiopn INR subtheraputic 1.8 resumed coumadin with IV heparin bridge Goal INR 3-4 stable cardiac status (5) History of bicuspid aortic valve: s/p TAVR with bio prothesitc valve replacement (6) Hypertension: had hypertensive episode due to respiratory distress /anxiety attack BP stable cont out pt meds (7) Hypercholesterolemia: on statin (8) Barretts esophagus: Continue PPI (9) Aortic aneurysm: No acute symptoms DVT prophylaxis coumadin , Iv heparin CODE STATUS Full Disposition : Will transfer to PCU Pt/OT eval when medically stable Admission and Anticipated Discharge Date Admission Date: February 09, 2020 Subjective Pt was seen and examined for follow up on respiratory distress Sitting in chair with mild respiratory distress Pt said that his breathing slightly improves He continues to be on high flow oxygen Physical Exam Physical Exam: General- No acute distress Head- atraumatic Eyes- PERRL, EOMI, ENT- oropharynx clear Neck- supple, no JVD Lungs- +Tachypneic, diminished BS Heart- regular rhythm; no murmur Abdomen- normal bowel sounds, soft, nontender Extremities- no calf tenderness Neuro- alert, oriented x 3; PERRL, EOMI; no facial palsy; no dysarthria Skin- warm & dry Results & Data Results & Data ([facility]) Vital Signs (Past 12 Hours) Vital Signs Temp Pulse Pulse Resp BP Pulse Ox 02/14/20 16:25 87 20 123/78 02/14/20 16:10 78 22 94 02/14/20 11:38 36.7 C 73 24 111/79 91 02/14/20 10:38 71 16 94 02/14/20 08:25 71 16 92 02/14/20 08:00 68
[2020-02-14] MEDS: diphenhydrAMINE Capsule 25 MG CAP PO PRN (21:52)
[2020-02-15 06:32] LABS: INR 2.4 (0.9-1.1); Partial Thromboplastin Ratio 2.1; Prothrombin Time 24.5 Seconds (9.0-12.0)
[2020-02-15 06:36] LABS: Partial Thromboplastin Time 57.9 Seconds (21.0-31.0)
[2020-02-15 06:41] LABS: Albumin Level 2.7 gm/dl (3.4-5.0); BUN Creatinine Ratio 32.4 (10-20); Calcium 8.8 mg/dl (8.5-10.1); Creatinine Clr Calc Pharmacy 77.6 ml/min; Est GFR (African American) 94.1; Est GFR (Non-African American) 81.2; Potassium 4.6 mmol/L (3.5-5.1)
[2020-02-15 06:44] LABS: Albumin Globulin Ratio 0.8 (0.9-2); Bilirubin,Total 0.9 mg/dl (0.2-1); Globulin 3.4 gm/dl (2.5-4.0); Total Protein 6.1 gm/dl (6.4-8.2)
[2020-02-15] MEDS ORDERED: ALBUT/IPRATROP 3MG/0.5MG NEB 3 ML VIAL ONE (07:23)
[2020-02-15] MEDS: METOPROLOL TARTRATE 25 MG TAB PO SCH ×2 (08:48→20:31)
[2020-02-15] MEDS: dexAMETHasone 6 MG in SYRINGE 0 ML IV SCH (08:48)
[2020-02-15] MEDS: PANTOprazole 40 MG TAB PO SCH ×2 (08:48→20:32)
[2020-02-15] MEDS: guaiFENesin 600 MG TABCR PO SCH ×2 (08:49→20:31)
--- NOTE | 2020-02-15 18:15 | Hospitalist Progress Note ---
Date of Service February 15, 2020 Assessment & Plan (1) Severe sepsis: Met SIRS criteria on admission with Elevated WBC, HR and RR with elevated lactate source of infection : COVID 19 pneumonia CXR on admission showed progression of bilateral airspace opacities consistent with an infectious process. Pro calcitonin negative blood culture on 02/04/20 grew Coag neg staph not lugdunensis (Mostly contamination ) Repeat blood cultures on 02/08 -negative growth Has been afebrile (2) Acute respiratory failure with hypoxia: (3) Pneumonia due to COVID-19 virus: Present on admission with worsening SOB/diarrhea and weakness COVID-19 positoive on 02/03 Continue IV remdesivir to complete 5 days course and Dexamethasone 6mg for 10 days Convalescent plasma not ordered as symptoms > 20 days Pulmonary /critical care on board Continue high flow oxygen supplement Continue Doxycycline x 5 days Clinically improves (4) Status post transcatheter aortic valve replacement (TAVR) using bioprosthesis: No acute chest pain and/or palpitation BNP normal , no evidence of CHF cont monitor Supratherapeutic INR INR on admission above 9 Received Vit K on admissiopn INR subtheraputic 1.8 resumed coumadin with IV heparin bridge Goal INR 3-4 stable cardiac status (5) History of bicuspid aortic valve: s/p TAVR with bio prothesitc valve replacement (6) Hypertension: had hypertensive episode due to respiratory distress /anxiety attack BP stable cont out pt meds (7) Hypercholesterolemia: on statin (8) Barretts esophagus: Continue PPI (9) Aortic aneurysm: No acute symptoms DVT prophylaxis coumadin , Iv heparin until INR btw 3-4 CODE STATUS Full Disposition : Pt/OT eval when medically stable Admission and Anticipated Discharge Date Admission Date: February 09, 2020 Subjective Pt was seen and examined for follow up on SOB Pt said that he feels a lot better today He said that he walk to the bathroom with oxygen and does not have any SOB compare to yesterday He said that he has been doing the proning He continues to require high flow oxygen denies any chest pain, palpitation, dizziness and fever Physical Exam Physical Exam: General- No acute distress Head- atraumatic Eyes- PERRL, EOMI, ENT- oropharynx clear Neck- supple, no JVD Lungs- +Tachypneic, diminished BS Heart- regular rhythm; no murmur Abdomen- normal bowel sounds, soft, nontender Extremities- no calf tenderness Neuro- alert, oriented x 3; PERRL, EOMI; no facial palsy; no dysarthria Skin- warm & dry Results & Data Results & Data ([facility]) Vital Signs (Past 12 Hours) Vital Signs Temp Pulse Pulse Pulse Resp BP BP 02/15/20 16:10 79 24 02/15/20 15:53 36.4 C L 82 24 127/93 02/15/20 11:21 74 18 02/15/20 11:05 37.2 C 72 21 117/83 02/15/20 07:37 36.4 C L 71 20 105/78 02/15/20 07:25 74 18 02/15/20 07:17 66 Pulse Ox 02/15/20 16:10 95 02/15/20 15:53 91 02/15/20 11:21 92 02/15/20 11:05 95 02/15/20 07:37 98 02/15/20 07:25 90 02/15/20 07:17
[2020-02-15] MEDS: diphenhydrAMINE Capsule 25 MG CAP PO PRN (21:33)
[2020-02-16] MEDS: HEPARIN SODIUM/DEXTROSE 25,000 UNITS/500 ML BAG IV SCH (06:40)
[2020-02-16 07:43] LABS: INR 2.4 (0.9-1.1); Partial Thromboplastin Ratio 1.9; Prothrombin Time 24.5 Seconds (9.0-12.0)
[2020-02-16 07:49] LABS: Partial Thromboplastin Time 53.8 Seconds (21.0-31.0)
[2020-02-16] MEDS: dexAMETHasone 6 MG in SYRINGE 0 ML IV SCH (07:50)
[2020-02-16] MEDS: METOPROLOL TARTRATE 25 MG TAB PO SCH ×2 (07:51→21:00)
[2020-02-16] MEDS: guaiFENesin 600 MG TABCR PO SCH ×2 (07:51→20:59)
[2020-02-16] MEDS: PANTOprazole 40 MG TAB PO SCH ×2 (07:51→21:00)
--- NOTE | 2020-02-16 08:46 | XRay Report ---
SINGLE VIEW CHEST CLINICAL HISTORY: Follow-up pneumonia. FINDINGS: An AP, portable, upright chest radiograph is compared to study dated 02/13/2020 and correla luis enrique with chest CT dated 12/25/2016. The examination is degraded by portable technique in apical lordo tic positioning. The patient is status post midline sternotomy. The heart is enlarged. A large hiatal hernia is noted. Multifocal airspace consolidation is unchanged from previous. No large pleural effu tammi or pneumothorax is seen. The skeletal structures are osteopenic. 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 IMPRESSION: Multifocal airspace consolidation has not significantly changed from 02/13/2020. ACT 112: Negative or not required by law. Electronically signed by: Sav Bernard M.D. 02/16/2020 8:45 AM
[2020-02-16] MEDS: WARFARIN SOD 5 MG TAB PO SCH (15:25)
--- NOTE | 2020-02-16 18:39 | Hospitalist Progress Note ---
Date of Service February 16, 2020 Assessment & Plan (1) Severe sepsis: Met SIRS criteria on admission with Elevated WBC, HR and RR with elevated lactate source of infection : COVID 19 pneumonia CXR on admission showed progression of bilateral airspace opacities consistent with an infectious process. Pro calcitonin negative blood culture on 02/04/20 grew Coag neg staph not lugdunensis (Mostly contamination ) Repeat blood cultures on 02/08 -negative growth Has been afebrile (2) Acute respiratory failure with hypoxia: (3) Pneumonia due to COVID-19 virus: Present on admission with worsening SOB/diarrhea and weakness COVID-19 positoive on 02/03 Continue IV remdesivir to complete 5 days course and Dexamethasone 6mg for 10 days Convalescent plasma not ordered as symptoms > 20 days Pulmonary /critical care on board Continue high flow oxygen supplement Completed the course of Doxycycline Clinically improves (4) Status post transcatheter aortic valve replacement (TAVR) using bioprosthesis: No acute chest pain and/or palpitation BNP normal , no evidence of CHF cont monitor Supratherapeutic INR INR on admission above 9 Received Vit K on admissiopn INR subtheraputic 2.4 today Continue coumadin with IV heparin bridge Goal INR 3-4 stable cardiac status (5) History of bicuspid aortic valve: s/p TAVR with bio prothesitc valve replacement (6) Hypertension: had hypertensive episode due to respiratory distress /anxiety attack BP stable cont out pt meds (7) Hypercholesterolemia: on statin (8) Barretts esophagus: Continue PPI (9) Aortic aneurysm: No acute symptoms DVT prophylaxis coumadin , Iv heparin until INR btw 3-4 CODE STATUS Full Disposition : Pt/OT eval when medically stable Admission and Anticipated Discharge Date Admission Date: February 09, 2020 Subjective Pt was seen and examined for follow up of respiratory distress due to COVID 19 Sitting in chair with no distress Continue to be in high flow oxygen He said that his breathing feels alot better He said that he walked to the bathroom with no discomfort Denies any fever, chest pain, palpitation and dizziness Physical Exam Physical Exam: General- No acute distress Head- atraumatic Eyes- PERRL, EOMI, ENT- oropharynx clear Neck- supple, no JVD Lungs- + diminished BS Heart- regular rhythm; no murmur Abdomen- normal bowel sounds, soft, nontender Extremities- no calf tenderness Neuro- alert, oriented x 3; PERRL, EOMI; no facial palsy; no dysarthria Skin- warm & dry Results & Data Results & Data ([facility]) Vital Signs (Past 12 Hours) Vital Signs Temp Pulse Resp BP Pulse Ox 02/16/20 15:56 36.7 C 76 20 111/88 96 02/16/20 15:36 76 20 96 02/16/20 11:42 37.1 C 75 20 116/78 92 02/16/20 11:14 78 21 92 02/16/20 08:01 66 21 90 02/16/20 07:26 36.5 C 65 20 106/72 93
[2020-02-16] MEDS: diphenhydrAMINE Capsule 25 MG CAP PO PRN (22:22)
[2020-02-17 07:27] LABS: Partial Thromboplastin Ratio 2.3; Prothrombin Time 30.3 Seconds (9.0-12.0)
[2020-02-17 07:49] LABS: Partial Thromboplastin Time 62.9 Seconds (21.0-31.0)
[2020-02-17] MEDS: dexAMETHasone 6 MG in SYRINGE 0 ML IV SCH (08:40)
[2020-02-17] MEDS: guaiFENesin 600 MG TABCR PO SCH ×2 (08:40→19:25)
[2020-02-17] MEDS: METOPROLOL TARTRATE 25 MG TAB PO SCH ×2 (08:40→19:25)
[2020-02-17] MEDS: PANTOprazole 40 MG TAB PO SCH ×2 (08:40→19:24)
[2020-02-17] MEDS ORDERED: ACETAMINOPHEN 325 MG TAB PO PRN (12:10)
--- NOTE | 2020-02-17 14:55 | Hospitalist Progress Note ---
Date of Service February 17, 2020 Assessment & Plan (1) Severe sepsis: Met SIRS criteria on admission with Elevated WBC, HR and RR with elevated lactate source of infection : COVID 19 pneumonia CXR on admission showed progression of bilateral airspace opacities consistent with an infectious process. Pro calcitonin negative blood culture on 02/04/20 grew Coag neg staph not lugdunensis (Mostly contamination ) Repeat blood cultures on 02/08 -negative growth Has been afebrile (2) Acute respiratory failure with hypoxia: (3) Pneumonia due to COVID-19 virus: Present on admission with worsening SOB/diarrhea and weakness COVID-19 positoive on 02/03 Continue IV remdesivir to complete 5 days course and Dexamethasone 6mg for 10 days Convalescent plasma not ordered as symptoms > 20 days Pulmonary /critical care on board Wean from high flow oxygen, currently on 11L [place] oxygen Completed the course of Doxycycline Clinically improves (4) Status post transcatheter aortic valve replacement (TAVR) using bioprosthesis: No acute chest pain and/or palpitation BNP normal , no evidence of CHF cont monitor Supratherapeutic INR INR on admission above 9 Received Vit K on admission INR 3 today IV heparin bridge discontinued Continue Coumadin with Goal INR 3-4 stable cardiac status (5) History of bicuspid aortic valve: s/p TAVR with bio prothesitc valve replacement (6) Hypertension: had hypertensive episode due to respiratory distress /anxiety attack BP stable cont out pt meds (7) Hypercholesterolemia: on statin (8) Barretts esophagus: Continue PPI (9) Aortic aneurysm: No acute symptoms DVT prophylaxis IV heparin drip discontinued Continue coumadin with INR 3 today CODE STATUS Full Disposition : Pt/OT eval when medically stable Admission and Anticipated Discharge Date Admission Date: February 09, 2020 Subjective Pt was seen and examined for follow up of respiratory failure due to COVID 19 Sitting in chair with no distress Pt said that he feels much better today He was wean from high flow oxygen and currently on 11L [place] He walked to the bathroom with no discomfort Denies any chest pain, palpitation, dizziness and fever Physical Exam Physical Exam: General- No acute distress Head- atraumatic Eyes- PERRL, EOMI, ENT- oropharynx clear Neck- supple, no JVD Lungs- + diminished BS Heart- regular rhythm; no murmur Abdomen- normal bowel sounds, soft, nontender Extremities- no calf tenderness Neuro- alert, oriented x 3; PERRL, EOMI; no facial palsy; no dysarthria Skin- warm & dry Results & Data Results & Data ([facility]) Vital Signs (Past 12 Hours) Vital Signs Temp Pulse Resp BP Pulse Ox 02/17/20 11:44 36.5 C 68 18 106/78 92 02/17/20 08:02 36.5 C 66 20 112/81 90 02/17/20 05:57 66 18 118/75 93
[2020-02-17] MEDS: WARFARIN SOD 5 MG TAB PO SCH (15:38)
[2020-02-18] MEDS: METOPROLOL TARTRATE 25 MG TAB PO SCH ×2 (08:54→21:25)
[2020-02-18] MEDS: PANTOprazole 40 MG TAB PO SCH ×2 (08:54→21:26)
[2020-02-18] MEDS: dexAMETHasone 6 MG in SYRINGE 0 ML IV SCH (08:54)
[2020-02-18] MEDS: guaiFENesin 600 MG TABCR PO SCH ×2 (08:54→21:26)
[2020-02-18 09:03] LABS: INR 4.9 (0.9-1.1); Prothrombin Time 47.2 Seconds (9.0-12.0)
[2020-02-18 09:19] LABS: BUN Creatinine Ratio 36.3 (10-20); Calcium 8.8 mg/dl (8.5-10.1); Creatinine Clr Calc Pharmacy 73.5 ml/min; Est GFR (African American) 88.6; Est GFR (Non-African American) 76.4; Potassium 4.7 mmol/L (3.5-5.1)
--- NOTE | 2020-02-18 17:16 | Hospitalist Progress Note ---
Date of Service February 18, 2020 Assessment & Plan (1) Severe sepsis: Met SIRS criteria on admission with Elevated WBC, HR and RR with elevated lactate source of infection : COVID 19 pneumonia CXR on admission showed progression of bilateral airspace opacities consistent with an infectious process. Procalcitonin negative blood culture on 02/04/20 grew Coag neg staph not lugdunensis (Mostly contamination ) Repeat blood cultures on 02/08 -negative growth Has been afebrile (2) Acute respiratory failure with hypoxia: (3) Pneumonia due to COVID-19 virus: Present on admission with worsening SOB/diarrhea and weakness COVID-19 positive on 02/03 Completed the course of 10 days Dexamethasone and Remdesivir 5 days course Convalescent plasma not ordered as symptoms > 20 days Pulmonary /critical care on board Wean from high flow oxygen, currently on 8L [place] oxygen Completed the course of Doxycycline Clinically improves (4) Status post transcatheter aortic valve replacement (TAVR) using bioprosthesis: No acute chest pain and/or palpitation BNP normal , no evidence of CHF cont monitor Supratherapeutic INR INR on admission above 9 Received Vit K on admission INR 4.9 today Will hold coumadin today Continue Coumadin with Goal INR 3-4 stable cardiac status (5) History of bicuspid aortic valve: s/p TAVR with bio prothesitc valve replacement (6) Hypertension: had hypertensive episode due to respiratory distress /anxiety attack BP stable cont out pt meds (7) Hypercholesterolemia: on statin (8) Barretts esophagus: Continue PPI (9) Aortic aneurysm: No acute symptoms DVT prophylaxis Coumadin on hold due to INR 4.9 today CODE STATUS Full Disposition : PT/OT eval when medically stable Admission and Anticipated Discharge Date Admission Date: February 09, 2020 Subjective Pt was seen and examined for follow up with SOB due to COVID 19 Sitting in chair with no distress watching TV Pt said that he is feeling much better He said that he was walking in his room with no discomfort He said that his breathing better Denies any chest pain, palpitation, dizziness and fever Physical Exam Physical Exam: General- No acute distress Head- atraumatic Eyes- PERRL, EOMI, ENT- oropharynx clear Neck- supple, no JVD Lungs- + diminished BS Heart- regular rhythm; no murmur Abdomen- normal bowel sounds, soft, nontender Extremities- no calf tenderness Neuro- alert, oriented x 3; PERRL, EOMI; no facial palsy; no dysarthria Skin- warm & dry Results & Data Results & Data ([facility]) Vital Signs (Past 12 Hours) Vital Signs Temp Pulse Pulse Pulse Resp BP Pulse Ox 02/18/20 15:04 36.6 C 74 20 115/78 92 02/18/20 11:09 36.9 C 79 20 131/84 93 02/18/20 08:30 36.4 C L 68 18 112/73 91 02/18/20 08:00 36.4 C L 78 84 22 106/71 91
[2020-02-19] MEDS: METOPROLOL TARTRATE 25 MG TAB PO SCH ×2 (08:07→21:20)
[2020-02-19] MEDS: guaiFENesin 600 MG TABCR PO SCH ×2 (08:08→21:18)
[2020-02-19] MEDS: PANTOprazole 40 MG TAB PO SCH ×2 (08:08→21:18)
[2020-02-19 09:32] LABS: Hematocrit (blood only) 48.3 % (42-52); Hemoglobin 16.4 g/dL (14.0-18.0); Mean Corpuscular Hemoglobin 31.2 pg (25-34); Mean Platelet Volume 12.5 fL (7.4-10.4); Platelet Count 245 K/uL (130-400); RDW Coefficient of Variation 13.7 % (11.5-14.5); RDW Standard Deviation 45.5 fL (36.4-46.3); Red Blood Count 5.25 M/uL (4.7-6.1)
[2020-02-19 09:48] LABS: Prothrombin Time 54.1 Seconds (9.0-12.0)
[2020-02-19 09:59] LABS: INR 5.6 (0.9-1.1)
--- NOTE | 2020-02-19 21:18 | Hospitalist Progress Note ---
Date of Service February 19, 2020 Assessment & Plan (1) Severe sepsis: Met SIRS criteria on admission with Elevated WBC, HR and RR with elevated lactate source of infection : COVID 19 pneumonia CXR on admission showed progression of bilateral airspace opacities consistent with an infectious process. Procalcitonin negative blood culture on 02/04/20 grew Coag neg staph not lugdunensis (Mostly contamination ) Repeat blood cultures on 02/08 -negative growth Has been afebrile (2) Acute respiratory failure with hypoxia: (3) Pneumonia due to COVID-19 virus: Present on admission with worsening SOB/diarrhea and weakness COVID-19 positive on 02/03 Completed the course of 10 days Dexamethasone and Remdesivir 5 days course Convalescent plasma not ordered as symptoms > 20 days Pulmonary /critical care on board Wean from high flow oxygen, currently on 5L [place] oxygen Completed the course of Doxycycline Clinically improves (4) Status post transcatheter aortic valve replacement (TAVR) using bioprosthesis: No acute chest pain and/or palpitation BNP normal , no evidence of CHF cont monitor Supratherapeutic INR INR on admission above 9 Received Vit K on admission INR 5.6 today Continue to hold coumadin today and possible resume tomorrow if INR drops in the 4range Goal INR 3-4 stable cardiac status (5) History of bicuspid aortic valve: s/p TAVR with bio prothesitc valve replacement (6) Hypertension: had hypertensive episode due to respiratory distress /anxiety attack BP stable cont out pt meds (7) Hypercholesterolemia: on statin (8) Barretts esophagus: Continue PPI (9) Aortic aneurysm: No acute symptoms DVT prophylaxis Coumadin on hold due to INR 5.6 today CODE STATUS Full Disposition : Will discharge home once medically stable Admission and Anticipated Discharge Date Admission Date: February 09, 2020 Subjective Pt was seen and examined for follow up with SOB due to COVID 19 Sitting in chair with no distress watching TV Pt said that he is feeling much better He is only on 5L [place] and said that his not having any discomfort Denies any chest pain, palpitation, dizziness and fever Physical Exam Physical Exam: General- No acute distress Head- atraumatic Eyes- PERRL, EOMI, ENT- oropharynx clear Neck- supple, no JVD Lungs- + diminished BS Heart- regular rhythm; no murmur Abdomen- normal bowel sounds, soft, nontender Extremities- no calf tenderness Neuro- alert, oriented x 3; PERRL, EOMI; no facial palsy; no dysarthria Skin- warm & dry Results & Data Results & Data ([facility]) Vital Signs (Past 12 Hours) Vital Signs Temp Pulse Resp BP Pulse Ox 02/19/20 20:24 36.3 C L 88 20 120/89 91 02/19/20 16:35 36.8 C 75 22 110/75 93 02/19/20 12:06 36.6 C 75 22 113/84 94
[2020-02-19] MEDS: diphenhydrAMINE Capsule 25 MG CAP PO PRN (23:00)
[2020-02-20] MEDS: PANTOprazole 40 MG TAB PO SCH ×2 (08:57→20:32)
[2020-02-20] MEDS: guaiFENesin 600 MG TABCR PO SCH ×2 (08:57→20:32)
[2020-02-20] MEDS: METOPROLOL TARTRATE 25 MG TAB PO SCH ×2 (08:58→20:32)
[2020-02-20 09:07] LABS: INR 3.8 (0.9-1.1); Prothrombin Time 37.6 Seconds (9.0-12.0)
--- NOTE | 2020-02-20 14:18 | Hospitalist Progress Note ---
Date of Service February 20, 2020 Assessment & Plan (1) Severe sepsis: Met SIRS criteria on admission with Elevated WBC, HR and RR with elevated lactate source of infection : COVID 19 pneumonia CXR on admission showed progression of bilateral airspace opacities consistent with an infectious process. Procalcitonin negative blood culture on 02/04/20 grew Coag neg staph not lugdunensis (Mostly contamination ) Repeat blood cultures on 02/08 -negative growth Has been afebrile (2) Acute respiratory failure with hypoxia: Due to COVID-19 pneumonia. Required high flow oxygen Status improved, on 4 L O2 via nasal cannula: Ordered for two-step exercise tomorrow to assess home oxygen needs (3) Pneumonia due to COVID-19 virus: Present on admission with worsening SOB/diarrhea and weakness COVID-19 positive on 02/03 Completed the course of 10 days Dexamethasone and Remdesivir 5 days course Pulmonary /critical care on board Weaned from high flow oxygen, currently on 4L NC oxygen comfortable, (4) Status post transcatheter aortic valve replacement (TAVR) using bioprosthesis: No acute chest pain and/or palpitation BNP normal , no evidence of CHF Supratherapeutic INR INR on admission above 9 Received Vit K on admission INR 3.8 Coumadin resumed (5) History of bicuspid aortic valve: s/p TAVR with bio prothesitc valve replacement (6) Hypertension: BP stable cont out pt meds (7) Hypercholesterolemia: on statin (8) Barretts esophagus: Continue PPI (9) Aortic aneurysm: No acute symptoms DVT prophylaxis Coumadin CODE STATUS Full Disposition : For discharge home tomorrow Admission and Anticipated Discharge Date Admission Date: February 09, 2020 Subjective Follow-up visit for COVID-19 pneumonia/acute hypoxemic respiratory failure Seen and examined in room 2 6 Covid unit Sitting up in chair, on 4 L oxygen via nasal cannula, feels fine, has been ambulating in room, denies of any cough, no fever or chills, normal energy level Hoping to get discharged home tomorrow Patient was not on home O2, will need two-step exercise tomorrow to assess home oxygen requirement. Review of Systems Review of Systems: All systems reviewed & are unremarkable except as noted in HPI & below Respiratory: no cough, no dyspnea, no dyspnea on exertion and no wheezing Cardiovascular: no chest pain, no dyspnea, no dyspnea on exertion, no orthopnea, no palpitations, no syncope and no edema Physical Exam Constitutional: WD/WN, vitals as above Eyes: + anicteric sclerae ENMT: external ear and nose normal, oropharynx normal Neck: trachea midline, no thyromegaly Respiratory: normal respiratory effort, lungs clear to auscultation Cardiovascular: RRR, no murmur, no edema Gastrointestinal (Abdomen): Percussion/Palpation: abdomen soft; abdomen nontender Musculoskeletal: no cyanosis or clubbing, extremities motor strength 5/5 Skin: no rashes, warm and dry Neurologic: PERRL, EOMI, accommodation nl, no face palsy, no dysarthria Psychiatric: Orientation: alert and oriented x 3 Results & Data Results & Data ([facility]) Vital Signs (Past 12 Hours) Vital Signs Temp Pulse Resp BP Pulse Ox 02/20/20 11:13 36.4 C L 79 20 102/75 94 02/20/20 07:46 36.4 C L 77 19 114/66 92 02/20/20 04:03 36.5 C 82 18 116/81 93
[2020-02-20] MEDS ORDERED: BENZONATATE 100 MG CAPSULE PO PRN (16:40)
--- NOTE | 2020-02-20 17:57 | Communication Note ---
Date of Service: February 20, 2020 spoke with Pt's Niece Caitlyn Morrison # [phone] niece will give ride to pt home and also will be helping pt at home with home 02 delivery /arrangements will update MILDRED Dumont MD
[2020-02-20] MEDS: diphenhydrAMINE Capsule 25 MG CAP PO PRN (22:48)
[2020-02-21 07:14] LABS: INR 2.7 (0.9-1.1); Prothrombin Time 27.4 Seconds (9.0-12.0)
--- NOTE | 2020-02-21 08:47 | Communication Note ---
Date of Service: February 21, 2020 2 step exercise done this am pt needs 2 L 02 at rest , 6 L on ambulation script for home 02 given to case management . pt remains in good spirit , no cough or fever stable to be discharged home after home 02 is arranged will need portable 02 delivered to hospital room before discharge for ride to home pt and family updated Niyah Dumont MD
[2020-02-21] MEDS: PANTOprazole 40 MG TAB PO SCH (09:26)
[2020-02-21] MEDS: METOPROLOL TARTRATE 25 MG TAB PO SCH (09:27)
[2020-02-21] MEDS: guaiFENesin 600 MG TABCR PO SCH (09:27)
--- NOTE | 2020-02-21 12:54 | Discharge Summary ---
Date of Service February 21, 2020 Admission HPI Per Admitting Provider He is a 64-year-old male with significant past medical history of bicuspid aortic valve status post AVR on Coumadin, hypertension, diaphragmatic hernia, coronary artery disease, ascending aortic aneurysm and Staples's esophagus was diagnosed with COVID-19 on Tuesday last in the emergency room. He came in with cough and shortness of breath for about 3 days prior to Tuesday. He did not require any oxygen at presentation on Tuesday and he was sent home. He has had abdominal discomfort with diarrhea but that that resolved subsequently. Later on he was seen by PCP and was given doxycycline for possible pneumonia. For the last 3 or 4 days he has been complaining of more cough and shortness of breath with minimal exertion and even at rest but did not have any more diarrhea or abdominal discomfort and no problem with smell. Did not complain any chest pain and/or palpitation, no fever and/or chills, no abdominal pain nausea and or vomiting. He was noted to be very short of breath at presentation with saturation around lower 70s on room air. His chest x-ray did show increasing infiltration and he is requiring 15 L of oxygen to maintain saturation above 90. His ferritin is 1827 and CRP 7.24. His lactate was slightly elevated at 2.8 and his troponin less than 0.015. We will get BNP to see if he needs any Lasix. He will be admitted to Covid unit in telemetry section. Principal Diagnosis COVID-19 pneumonia Acute hypoxemic respiratory failure Discharge Exam Constitutional WD/WN, vitals as above well developed, well nourished, + acute distress, + ill appearing and + in distress Eyes PERRL, conjunctivae normal, anicteric sclerae + anicteric sclerae ENMT external ear and nose normal, oropharynx normal Neck trachea midline, no thyromegaly Respiratory normal respiratory effort, lungs clear to auscultation + respiratory distress, + cough, able to speak in complete sentences, + tachypneic and + prolonged expiratory phase Auscultation: + diminished lung sounds and + crackles (Fine crackles at the bases); no wheezes Cardiovascular RRR, no murmur, no edema Rate/Rhythm: regular rate, regular rhythm and + tachycardic Heart Sounds: + click Extremities: no edema Gastrointestinal (Abdomen) Inspection/Auscultation: normal bowel sounds; abdomen not distended Percussion/Palpation: abdomen soft; abdomen nontender Musculoskeletal no cyanosis or clubbing, extremities motor strength 5/5 Skin no rashes, warm and dry Neurologic PERRL, EOMI, accommodation nl, no face palsy, no dysarthria Psychiatric A+Ox3, euthymic affect Orientation: alert and oriented x 3 Affect: + anxious affect Lymphatic no cervical or axillary lymphadenopathy Discharge Data Allergies Allergy/AdvReac Type Severity Reaction Status Date / Time No Known Allergies Allergy Verified 02/09/20 17:32 Consultations 02/09/20 16:19 ED Decision to Admit Stat 02/09/20 19:03 Consult Pulmonology Routine 02/11/20 08:00 Consult Infectious Diseases Routine Hospital Course (1) Severe sepsis: Met SIRS criteria on admission with Elevated WBC, HR and RR with elevated lactate source of infection : COVID 19 pneumonia CXR on admission showed progression of bilateral airspace opacities consistent with an infectious process. Procalcitonin negative blood culture on 02/04/20 grew Coag neg staph not lugdunensis (Mostly contamination ) Repeat blood cultures on 02/08 -negative growth Has been afebrile (2) Acute respiratory failure with hypoxia: Due to COVID-19 pneumonia. Required high flow oxygen Status improved, on 4 L O2 via nasal cannula: Ordered for two-step exercise tomorrow to assess home oxygen needs (3) Pneumonia due to COVID-19 virus: Present on admission with worsening SOB/diarrhea and weakness COVID-19 positive on 02/03 Completed the course of 10 days Dexamethasone and Remdesivir 5 days course Pulmonary /critical care on board Weaned from high flow oxygen, currently on 4L NC oxygen comfortable, 2 step exercise shows need 2 L 02 at rest , 6 L on ambulation , arrangements made for home 02 stable to discharge home today (4) Status post transcatheter aortic valve replacement (TAVR) using bioprosthesis: No acute chest pain and/or palpitation BNP normal , no evidence of CHF Supratherapeutic INR INR on admission above 9 Received Vit K on admission INR 3.8 Coumadin resumed (5) History of bicuspid aortic valve: s/p TAVR with bio prothesitc valve replacement (6) Hypertension: BP stable cont out pt meds (7) Hypercholesterolemia: on statin (8) Barretts esophagus: Continue PPI (9) Aortic aneurysm: No acute symptoms DVT prophylaxis Coumadin CODE STATUS Full Disposition : discharge home today Total Time Total Time Spent Total Time Spent (In Minutes): 35 mins Discharge Plan Discharge Items Patient Disposition: Home - Self-Care Reason For Visit: COVID-19 PNEUMONIA,RESP FAILURE,AVR Discharge Diagnosis: COVID-19 pneumonia Acute hypoxemic respiratory failure Condition on Discharge: Good Activity: Resume your previous activity Non-emergency contact: Primary Care Provider Call non-emergency contact if: you have any medication questions Follow-up/Referrals: Andi Espitia DO [Primary Care Provider] - 02/25/20 11:00 am (Date & Time 02/25/2020 11:00 AM Provider Ephraim Degroot MD Department General Internal Medicine [facility] ) Diet: Heart Healthy Addtl Attending Provider Instructions: Home Isolation COVID-19 Instructions The following information about Home Isolation is from the CDC Website: https://www.cdc.gov/coronavirus/2019-ncov/hcp/flgkgjed-zsbnzae-oajjpw.html Wear a face mask You should wear a face mask when you are around other people (e.g., sharing a room or vehicle) or pets and before you enter a healthcare providers office. Cover your coughs and sneezes Cover your mouth and nose with a tissue when you cough or sneeze. Throw used tissues in a lined trash can. Immediately wash your hands with soap and water for at least 20 seconds or, if soap and water are not available, clean your hands with an alcohol-based hand technology sales consultant that contains at least 60% alcohol. Clean your hands often Wash your hands often with soap and water for at least 20 seconds, especially after blowing your nose, coughing, or sneezing; going to the bathroom; and before eating or preparing food. If soap and water are not readily available, use an alcohol-based hand technology sales consultant with at least 60% alcohol, covering all surfaces of your hands and rubbing them together until they feel dry. Soap and water are the best option if hands are visibly dirty. Avoid touching your eyes, nose, and mouth with unwashed hands. Discontinuing home isolation Per CDC guideline, discontinue home isolation after 10 days of positive test result or onset of symptoms Your COVID-19 test was positive on 02/04/2020 You will not need to continue strict home quarantine on discharge, continue to observe social distancing, wear mask, wash your hands with soap and water Pending Studies at Discharge: No Stand-Alone Forms: My [facility], Smoking Cessation Medications and DC Order Prescriptions: Continued warfarin 2.5 mg Tablet 5 mg PO 2XWK RF: 0 warfarin 2.5 mg Tablet 2.5 mg PO 5XWK RF: 0 atorvastatin 10 mg Tablet 10 mg PO 2XWK RF: 0 aspirin 81 mg Tablet,Delayed Release (Dr/Ec) 81 mg PO QAM RF: 0 metoprolol tartrate 25 mg Tablet 12.5 mg PO BID RF: 0 benzonatate [Tessalon Perles] 100 mg capsule 100 mg PO TID PRN (Reason: Cough) RF: 0 Discontinued doxycycline hyclate 100 mg Capsule 100 mg PO BID RF: 0 prednisone 20 mg Tablet 20 mg PO BID RF: 0 Discharge Orders: Discharge Order (Routine); Ordered 02/21/20 Ordered By: Niyah Lovett/Other Patient Handouts: Using Oxygen Safely, Traveling with Oxygen, Using an Oxygen Tank at Home Admission Data Admit Date/Time: 02/09/20 17:13 Attending Provider: Niyah Dumont Admit Provider: Vania Haynes Primary Care Provider: Andi Espitia Other Providers: Niyah Dumont ; Agusto Smith ; Vania Haynes ; Bisi Hill ; Wesley Burton ; Bharat Bolaños ; Jayjay Nichols I. ; Jermaine Chavez II ; Zoraida Lynch ; Rudy Smiley Other Interventions: Discharge Summary Assessment (RN) Last Done: 02/21/20 10:08
[2020-02-21] MEDS ORDERED: WARFARIN SOD 2.5 MG TAB PO SCH (16:00)
[2020-02-22] MEDS ORDERED: WARFARIN SOD 5 MG TAB PO SCH (16:00)
== END 2020-02-21 12:14 | disposition home or self-care (01) | DRG 871 ==
LOC: ED 13:22 → 2S 17:13 → SUATTDRO 17:13 → 2S 20:24 → 1E 02-10 09:12 → 2E 02-12 09:16 → 3E 02-20 14:19